=== PATIENT | female | born 1935 | race Caucasian/White ===

== ENCOUNTER → 2016-04-30 | Outpatient (CLI) | payer MEDICARE ==
[~2016-04-30] MED LIST: ALPR0.254 PO; AMIT10TA PO; AMLO5TAB2 PO; ATOR10TA PO; CALC600T4 PO; CHOL20003 PO; COLE1TAB PO; ESOM40CA PO; GLUC-12 PO; HYDR50TA6 PO; IBUP200T58 PO; KRIL500C PO; LEVO50TA5 PO; METO50TA2 PO; MULT-245 PO; POTA20TA82 PO; ZOLP10TA4 PO
--- NOTE | 2016-04-30 10:33 | RAD ---
Right lower extremity, 3 views, 04/30/2006: History: Osteoarthritis, bone length exam AP standing views of the right femur and lower leg were obtained with markers placed on the skin surface laterally to facilitate bone length measurements. There is moderate degenerative change at the right knee with dominant involvement of the medial compartment. These limited images are otherwise unremarkable.
--- NOTE | 2016-04-30 15:17 | RAD ---
Examination: MRI of the right knee were without contrast, Coburn and nephew protocol HISTORY History of chronic knee pain. COMPARISON 09/06/2015. TECHNIQUE Axial T2 fat sat images of the right knee were performed. Sagittal images FINDINGS The anterior cruciate ligament, posterior cruciate ligament appear intact. There is a attenuation and degenerative tear of the medial meniscus grossly similar to prior exam including the body and posterior horn. The extensor mechanism is intact. Moderate knee joint effusion is identified. Moderate-sized popliteal cyst is noted. Severe cartilage loss identified in the medial compartment. Note that this is not a diagnostic exam but rather intended for the purpose of medical scribe reconstruction. IMPRESSION - Severe cartilage loss identified in medial compartment. Attenuation and degenerative tear of the body and posterior horn of the medial meniscus similar to prior exam. - Moderate knee joint effusion with moderate size popliteal cyst. - Note that this is not a diagnostic exam but rather intended for the purpose of medical scribe reconstruction. Electronically signed by: Ramesh Alvarado (Apr 30, 2016 15:15:30)
== END | disposition home or self-care (01) ==
LOC: RAD 10:10
PROVIDERS: ATTEND Orthopaedic Surgery Sports Medicine
DX: M17.11 Unilateral primary osteoarthritis, right knee (principal); M25.461 Effusion, right knee; M71.21 Synovial cyst of popliteal space [Baker], right knee; S83.241A Other tear of medial meniscus, current injury, right knee, initial encounter; X58.XXXA Exposure to other specified factors, initial encounter; Y93.89 Activity, other specified; Y92.89 Other specified places as the place of occurrence of the external cause; Y99.8 Other external cause status; M25.561 Pain in right knee
CPT/HCPCS: 73721; 77073

== ENCOUNTER → 2016-05-07 | Outpatient (CLI) | payer MEDICARE ==
[~2016-05-07] MED LIST changes: +ESCI5TAB24 PO
--- NOTE | 2016-05-07 14:13 | EKG ---
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
[2016-05-07 14:40] LABS: BASO # 0.1 x10^3/uL (0.0-0.2); BASO % 1 % (0-3); EOS % 1 % (0-3); HEMATOCRIT 41.5 % (36.0-47.0); HEMOGLOBIN 13.7 g/dL (12.0-15.5); LYMPH # 2.3 x10^3/uL (1.0-4.8); LYMPH % 27 % (24-48); MEAN CORPUSCULAR HEMOGLOBIN 29 pg (25-35); MEAN CORPUSCULAR HGB CONC 33 g/dL (31-37); MEAN CORPUSCULAR VOLUME 89 fL (79-100); MONO % 9 % (0-9); NEUT % 63 % (31-73); PLATELET COUNT 300 x10^3/uL (140-400); RED BLOOD COUNT 4.66 x10^6/uL (3.50-5.40); RED CELL DISTRIBUTION WIDTH 14.5 % (11.5-14.5); WHITE BLOOD COUNT 8.7 x10^3/uL (4.0-11.0)
[2016-05-07 14:45] LABS: BILIRUBIN,URINE NEGATIVE (NEG); GLUCOSE,URINE NEGATIVE (NEG); NITRITE,URINE NEGATIVE (NEG); PH,URINE 6.5; PROTEIN,URINE NEGATIVE (NEG-TRACE); UROBILINOGEN,URINE 0.2 mg/dL (0.2 mg/dL)
[2016-05-07 14:50] LABS: ALBUMIN 3.8 g/dL (3.4-5.0); CALCIUM 9.8 mg/dL (8.5-10.1); CREATININE 0.9 mg/dL (0.6-1.0); GFR 59.9; POTASSIUM 3.5 mmol/L (3.5-5.1)
[2016-05-07 14:51] LABS: PROTHROMBIN TIME PATIENT 12.6 SEC (11.7-14.0)
[2016-05-07 14:52] LABS: BACTERIA,URINE 0 /HPF (0-FEW); RBC,URINE 0 /HPF (0-2); SQUAMOUS EPITHELIAL CELL,UR OCC /LPF; WBC,URINE 0 /HPF (0-4)
--- NOTE | 2016-05-07 15:01 | RAD ---
Indication preop. Anticipated knee surgery. PA and lateral views of the chest were obtained. Comparison is made to an examination 09/03/2015. The heart and pulmonary vessels appear normal. The lungs are clear. There is no pleural fluid or pneumothorax. There has not a significant change when compared to the previous exam. IMPRESSION: No acute finding. No significant change
== END | disposition home or self-care (01) ==
LOC: SURGPAT 12:52
PROVIDERS: ATTEND Orthopaedic Surgery Sports Medicine
DX: Z01.818 Encounter for other preprocedural examination (principal)
CPT/HCPCS: 36415; 71020; 80048; 81001; 82040; 83036; 85027; 85610; 85651; 85730; 87641; 93005

== ENCOUNTER 2016-06-15 17:58 | Inpatient (IN) | payer MEDICARE ==
[~2016-06-15] VITALS: Ht 160 cm; Wt 64.9 kg
[~2016-06-15 17:58] MED LIST changes: +MELO7.5T5 PO; +WARF-78 PO
--- NOTE | 2016-06-15 18:33 | PHYS DOC ---
Past Medical History Past Medical History: No Pertinent History Past Surgical History: No Surgical History Alcohol Use: None Drug Use: None Adult General Chief Complaint Chief Complaint: ALTERED MENTAL STATUS HPI HPI Patient is a 80 year old female who presents with altered mental status. Patient was brought to the emergency department by EMS who state that the patient contacted them. The patient states that she is confused and thinks that it may have started upon awakening this morning. Patient states currently she has a headache. Patient is able to correctly identify her name and where she is currently. Patient is having difficulty naming her primary doctor and the surgeon who recently operated on her right knee. Return evaluation, the patient was admitted on May 26, 2016 and had a right total knee arthroplasty. Patient denies any pain in her right knee at this time. Patient denies any recent illness and is currently not experiencing any chest pain or abdominal pain. Patient noted to be hypertensive. Patient states that she is on medication for hypertension but has not taken her meds today. Patient also admits to feeling anxious at this time. Review of Systems Review of Systems Constitutional: Denies fever or chills [] Eyes: Denies change in visual acuity, redness, or eye pain [] HENT: Denies nasal congestion or sore throat [] Respiratory: Denies cough or shortness of breath [] Cardiovascular: Denies chest pain or edema [] GI: Denies abdominal pain, nausea, vomiting, bloody stools or diarrhea [] : Denies dysuria or hematuria [] Musculoskeletal: Denies back pain or joint pain [] Integument: Denies rash or skin lesions [] Neurologic: Headache, confusion, denies focal weakness or sensory changes [] Current Medications Current Medications Current Medications Medications (Trade) Dose Ordered Sig/Dalton Start Time Stop Time Status Last Admin Dose Admin Acetaminophen (Tylenol) 650 mg PRN Q4HRS PRN 06/15/16 19:30 06/16/16 19:29 Labetalol HCl (Normodyne) 10 mg PRN Q2HR PRN 06/15/16 19:30 Lorazepam (Ativan) 1 mg 1X ONCE 06/15/16 18:45 06/15/16 18:46 DC 06/15/16 18:33 1 MG Ondansetron HCl (Zofran) 4 mg PRN Q8HRS PRN 06/15/16 19:30 06/16/16 19:29 Sodium Chloride 1,000 ml @ 100 mls/hr 1X ONCE 06/15/16 18:45 06/16/16 04:44 06/15/16 18:34 100 MLS/HR Allergies Allergies Allergies Coded Allergies Type Severity Reaction Last Updated Verified latex Allergy Intermediate Rash 05/26/16 Yes Physical Exam Physical Exam Constitutional: Alert, afebrile, appears anxious. [] HENT: Normocephalic, atraumatic, bilateral external ears normal, oropharynx moist, no oral exudates, nose normal. [] Eyes: PERRLA, EOMI, conjunctiva normal, no discharge. [] Neck: Normal range of motion, no tenderness, supple, no stridor. [] Cardiovascular:Heart rate regular rhythm, no murmur [] Lungs & Thorax: Bilateral breath sounds clear to auscultation [] Abdomen: Bowel sounds normal, soft, no tenderness, no masses, no pulsatile masses. [] Skin: Warm, dry, no erythema, no rash. [] Back: No tenderness, no CVA tenderness. [] Extremities: Right TKA incision with soiled Steri-Strips in place, nontender to palpation, no warmth or erythema present, no cyanosis, no clubbing, ROM intact, no edema. [] Neurologic: Alert, disoriented to events, normal motor function, normal sensory function, no focal deficits noted. [] Current Patient Data Vital Signs Vital Signs Date Time Temp Pulse Resp B/P (MAP) Pulse Ox O2 Delivery O2 Flow Rate FiO2 06/15/16 18:01 84 24 212/90 (130) 98 Room Air Lab Values Laboratory Tests Test 06/15/16 18:00 06/15/16 18:24 White Blood Count 9.6 x10^3/uL (4.0-11.0) Red Blood Count 4.35 x10^6/uL (3.50-5.40) Hemoglobin 12.9 g/dL (12.0-15.5) Hematocrit 37.0 % (36.0-47.0) Mean Corpuscular Volume 85 fL (79-100) Mean Corpuscular Hemoglobin 30 pg (25-35) Mean Corpuscular Hemoglobin Concent 35 g/dL (31-37) Red Cell Distribution Width 13.6 % (11.5-14.5) Platelet Count 464 x10^3/uL (140-400) H Neutrophils (%) (Auto) 67 % (31-73) Lymphocytes (%) (Auto) 22 % (24-48) L Monocytes (%) (Auto) 11 % (0-9) H Eosinophils (%) (Auto) 0 % (0-3) Basophils (%) (Auto) 1 % (0-3) Neutrophils # (Auto) 6.4 x10^3uL (1.8-7.7) Lymphocytes # (Auto) 2.1 x10^3/uL (1.0-4.8) Monocytes # (Auto) 1.0 x10^3/uL (0.0-1.1) Eosinophils # (Auto) 0.0 x10^3/uL (0.0-0.7) Basophils # (Auto) 0.1 x10^3/uL (0.0-0.2) Sodium Level 124 mmol/L (136-145) L Potassium Level 3.1 mmol/L (3.5-5.1) L Chloride Level 87 mmol/L (98-107) L Carbon Dioxide Level 25 mmol/L (21-32) Anion Gap 12 (6-14) Blood Urea Nitrogen 10 mg/dL (7-20) Creatinine 0.7 mg/dL (0.6-1.0) Estimated GFR (Cockcroft-Gault) 80.1 BUN/Creatinine Ratio 14 (6-20) Glucose Level 123 mg/dL (70-99) H Lactic Acid Level 1.9 mmol/L (0.4-2.0) Calcium Level 9.9 mg/dL (8.5-10.1) Magnesium Level 1.5 mg/dL (1.8-2.4) L Total Bilirubin 0.6 mg/dL (0.2-1.0) Aspartate Amino Transferase (AST) 26 U/L (15-37) Alanine Aminotransferase (ALT) 24 U/L (14-59) Alkaline Phosphatase 89 U/L (46-116) Total Protein 7.8 g/dL (6.4-8.2) Albumin 3.7 g/dL (3.4-5.0) Albumin/Globulin Ratio 0.9 (1.0-1.7) L Urine Collection Type Unknown Urine Color Yellow Urine Clarity Clear Urine pH 8.0 Urine Specific [place] 1.010 Urine Protein Negative mg/dL (NEG-TRACE) Urine Glucose (UA) Negative mg/dL (NEG) Urine Ketones (Stick) Negative mg/dL (NEG) Urine Blood Negative (NEG) Urine Nitrite Negative (NEG) Urine Bilirubin Negative (NEG) Urine Urobilinogen Dipstick 0.2 mg/dL (0.2 mg/dL) Urine Leukocyte Esterase Negative (NEG) Urine RBC 0 /HPF (0-2) Urine WBC Rare /HPF (0-4) Urine Squamous Epithelial Cells Occ /LPF Urine Bacteria 0 /HPF (0-FEW) Urine Opiates Screen Pos (NEG) Urine Methadone Screen Neg (NEG) Urine Barbiturates Neg (NEG) Urine Phencyclidine Screen Neg (NEG) Urine Amphetamine/Methamphetamine Neg (NEG) Urine Benzodiazepines Screen Neg (NEG) Urine Cocaine Screen Neg (NEG) Urine Cannabinoids Screen Neg (NEG) Urine Ethyl Alcohol Neg (NEG) Laboratory Tests 06/15/16 18:00 Laboratory Tests 06/15/16 18:00 EKG EKG Interpreted by me: Heart rate 82, sinus rhythm, normal intervals, normal axis, no acute ST/T-wave abnormalities present [] Radiology/Procedures Radiology/Procedures One view AP chest x-ray interpreted by me: No infiltrate, no effusions, normal cardiac silhouette [] Course & Med Decision Making Course & Med Decision Making Pertinent Labs and Imaging studies reviewed. (See chart for details) Patient found to have a significantly decreased sodium level at 124. This is believed to be the cause of the patient's alteration in mental status. Patient will require admission to the hospital for further treatment. I spoke with Dr. Ruiz who accepted care patient in hospital. A consult was placed to Dr. Markham of nephrology to follow patient in hospital. Dragon Disclaimer Dragon Disclaimer This electronic medical record was generated, in whole or in part, using a voice recognition dictation system. Departure Departure Impression: Primary Impression: Metabolic encephalopathy Additional Impressions: Hyponatremia Hypertension Disposition: ADMITTED INPATIENT Admitting Physician: Olya Ruiz Condition: GUARDED Referrals: VIC SHARMA (PCP) Problem Qualifiers Additional Impressions: Hypertension Hypertension type: essential hypertension Qualified Codes: I10 - Essential ( primary) hypertension ADI ORTIZ MD June 15, 2016 18:33
[2016-06-15 18:39] LABS: BILIRUBIN,URINE NEGATIVE (NEG); GLUCOSE,URINE NEGATIVE (NEG); NITRITE,URINE NEGATIVE (NEG); PROTEIN,URINE NEGATIVE (NEG-TRACE); UROBILINOGEN,URINE 0.2 mg/dL (0.2 mg/dL)
[2016-06-15 18:40] LABS: BASO # 0.1 x10^3/uL (0.0-0.2); BASO % 1 % (0-3); EOS % 0 % (0-3); HEMOGLOBIN 12.9 g/dL (12.0-15.5); LYMPH # 2.1 x10^3/uL (1.0-4.8); LYMPH % 22 % (24-48); MEAN CORPUSCULAR HEMOGLOBIN 30 pg (25-35); MEAN CORPUSCULAR HGB CONC 35 g/dL (31-37); MEAN CORPUSCULAR VOLUME 85 fL (79-100); MONO % 11 % (0-9); NEUT % 67 % (31-73); PLATELET COUNT 464 x10^3/uL (140-400); RED BLOOD COUNT 4.35 x10^6/uL (3.50-5.40); RED CELL DISTRIBUTION WIDTH 13.6 % (11.5-14.5); WHITE BLOOD COUNT 9.6 x10^3/uL (4.0-11.0)
[2016-06-15 18:44] LABS: BACTERIA,URINE 0 /HPF (0-FEW); RBC,URINE 0 /HPF (0-2); SQUAMOUS EPITHELIAL CELL,UR OCC /LPF; WBC,URINE RARE /HPF (0-4)
[2016-06-15] MEDS ORDERED: IV NORMAL SALINE 1000ML BAG 1,000 ML IV ONE (18:45)
[2016-06-15 18:46] LABS: BARBITURATES NEG (NEG); BENZODIAZEPINES NEG (NEG); CANNABINOIDS NEG (NEG); COCAINE NEG (NEG); METHADONE NEG (NEG); OPIATES POS (NEG); PHENCYCLIDINE NEG (NEG)
[2016-06-15 18:50] LABS: CALCIUM 9.9 mg/dL (8.5-10.1); CREATININE 0.7 mg/dL (0.6-1.0); GFR 80.1; POTASSIUM 3.1 mmol/L (3.5-5.1)
[2016-06-15 19:06] LABS: ALBUMIN 3.7 g/dL (3.4-5.0); ALBUMIN/GLOBULIN RATIO 0.9 (1.0-1.7); MAGNESIUM 1.5 mg/dL (1.8-2.4); TOTAL BILIRUBIN 0.6 mg/dL (0.2-1.0); TOTAL PROTEIN 7.8 g/dL (6.4-8.2)
[2016-06-15] MEDS ORDERED: LABETALOL 20 MG/4 ML DISP.SYRIN. IVP PRN (19:30)
[2016-06-15] MEDS ORDERED: ONDANSETRON PF 4 MG/2 ML VIAL. IV PRN (19:30)
[2016-06-15] MEDS ORDERED: POTASSIUM CHLORIDE 20 MEQ TABLET.ER. PO ONE (20:30)
[2016-06-15 20:47] VITALS: BP 164/68
--- NOTE | 2016-06-15 20:53 | ACF ---
Admission Forms Criteria HYPONATREMIA; HYPERNATREMIA; HYPOKALEMIA; HYPERKALEMIA; HYPOCALCEMIA; HYPERCALCEMIA Clinical Indications for Inpatient Care (Place 'X' for any and all applicable criteria): Ongoing inpatient care may be indicated for ANY ONE of the following [G](1)(2)(3 )(5): [X ]I. Hyponatremia with ANY ONE of the following: [X]a) Sodium less than 130 mEq/L (mmol/L) (new) (6)(22) [ ]b) Sodium less than 135 mEq/L (mmol/L) with ANY ONE of the following: [ ]i) Severe medical etiology requiring inpatient management (eg, heart failure, hypovolemia) [ ]ii) Altered mental status [ ]iii) Seizures [ ]II. Hypernatremia with ANY ONE of the following: [ ]a) Sodium greater than 155 mEq/L (mmol/L) [ ]b) Sodium greater than 150 mEq/L (mmol/L) with ANY ONE of the following: [ ] i) Altered mental status [ ]ii) Seizures [ ]iii) Severe medical etiology (eg, hypovolemia, diabetes insipidus) [ ]iv) Severe weakness [ ]v) Severe medical etiology (eg, hemolysis, infection, drug overdose) [ ]III. Hypokalemia with ANY ONE of the following: [ ]a) Potassium less than 2.5 mEq/L (mmol/L) despite outpatient and emergency treatment [ ]b) Potassium less than 3.0 mEq/L (mmol/L) with ANY ONE of the following: [ ]i) Weakness [ ]ii) Cardiac abnormality (eg, arrhythmia, conduction disturbance) [ ]iii) Cardiac ischemia [ ]iv) Ileus [ ]v) Ongoing medical cause requiring inpatient management. ( e.g., acute renal wasting, SIADH) [ ]vi) Other severe symptoms [ ] IV. Hyperkalemia with ANY ONE of the following: [ ]a) Potassium greater than 6.5 mEq/L (mmol/L) [ ]b) Potassium greater than 5 mEq/L (mmol/L) with ANY ONE of the following: [ ]i) Severe ECG findings [H] [ ]ii) Acute worsening of renal failure (creatinine greater than 2.5 mg/dL (221 micromoles/L) or significant elevation for age and size) [ ] V. Hypocalcemia with ANY ONE of the following: [ ]a) Calcium less than 7 mg/dL (1.75 mmol/L) despite outpatient and emergency treatment(19) [ ]b) Calcium less than 8 mg/dL (2 mmol/L) with significant symptoms or findings; examples include: [ ]i) Cardiac abnormality (eg, arrhythmia or conduction disturbance) [ ]ii) Altered mental status [ ]iii) Seizures [ ]iv) Breathing difficulty [ ]v) Muscle spasms [ ]. Hypercalcemia with ANY ONE of the following: [ ]a) Calcium greater than 14 mg/dL (3.5 mmol/L) [ ]b) Calcium greater than 12 mg/dL (3 mmol/L) with ANY ONE of the following: [ ]i) Significant dehydration or hypovolemia as indicated by ANY ONE of the following(2): [ ]1. Clinically significant dehydration as indicated by ANY ONE of the following: [ ]A. Acute loss of weight from baseline (5% of body weight in adults, 9% in pediatric patients) [ ]B. Hemodynamic instability [ ]C. Acute renal failure [ ]D. Serum sodium greater than 150 mEq/L (mmol/L) [ ]2) Dehydration that is persistent indicated by ALL of the following: [ ]A. Oral rehydration therapy not tolerated or insufficient to adequately correct dehydration [ ]B. Appropriate intravenous treatment (eg, fluids ) does not readily correct dehydration ie, after 12 to 24 hours of treatment) [ ]ii) Significant symptoms or findings; examples include: [ ]1) Altered mental status [ ]2) Cardiac abnormality (eg, arrhythmia, conduction disturbance) [ ]3) Cardiac abnormality (eg, arrhythmia, conduction disturbance) The original [facility] content created by [employer] has been revised. The portions of the content which have been revised are identified through the use of italic text or in bold, and [facility] has neither reviewed nor approved the modified material. All other unmodified content is copyright [facility] [employer] Please see references footnoted in the original [facility] [employer] edition 2016 Admission Criteria Met?: Yes TANNER ACUÑA June 15, 2016 20:53
[2016-06-15] MEDS: ACETAMINOPHEN 325 MG TABLET. PO PRN (22:16)
[2016-06-15] MEDS: IV NORMAL SALINE 1000ML BAG 1,000 ML IV SCH (22:19)
[2016-06-15] MEDS: ALPRAZolam 0.25 MG TABLET PO PRN (22:31)
[2016-06-15] MEDS: ZOLPIDEM 5 MG TABLET. PO PRN (22:31)
[2016-06-15 23:03] VITALS: BP 151/64
[2016-06-16 03:06] VITALS: BP 155/62
[2016-06-16] MEDS: ACETAMINOPHEN 325 MG TABLET. PO PRN ×2 (04:41→08:23)
[2016-06-16] MEDS: ALPRAZolam 0.25 MG TABLET PO PRN ×2 (04:41→21:51)
[2016-06-16 06:11] LABS: CALCIUM 9.2 mg/dL (8.5-10.1); CREATININE 0.7 mg/dL (0.6-1.0); GFR 80.1; POTASSIUM 3.8 mmol/L (3.5-5.1)
[2016-06-16] MEDS: LEVOTHYROXINE 50 MCG TABLET PO SCH (06:29)
--- NOTE | 2016-06-16 06:37 | EKG ---
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
[2016-06-16 06:47] LABS: INR 1.4 (0.8-1.1); PROTHROMBIN TIME PATIENT 16.7 SEC (11.7-14.0)
--- NOTE | 2016-06-16 07:06 | RAD ---
Indication: Shortness of breath. Time of exam 1855 hours. Correlation is made with prior study from 05/07/2016. The heart size is normal. The lungs are clear. No infiltrate or failure is seen. No effusion or pneumothorax is detected. Impression: No acute cardiac bony process is detected.
[2016-06-16 07:10] LABS: BASO # 0.1 x10^3/uL (0.0-0.2); BASO % 1 % (0-3); EOS % 0 % (0-3); HEMATOCRIT 33.6 % (36.0-47.0); HEMOGLOBIN 11.4 g/dL (12.0-15.5); LYMPH # 2.3 x10^3/uL (1.0-4.8); LYMPH % 26 % (24-48); MEAN CORPUSCULAR HEMOGLOBIN 29 pg (25-35); MEAN CORPUSCULAR HGB CONC 34 g/dL (31-37); MEAN CORPUSCULAR VOLUME 87 fL (79-100); MONO % 13 % (0-9); NEUT % 59 % (31-73); PLATELET COUNT 409 x10^3/uL (140-400); RED BLOOD COUNT 3.86 x10^6/uL (3.50-5.40); RED CELL DISTRIBUTION WIDTH 13.8 % (11.5-14.5); WHITE BLOOD COUNT 8.6 x10^3/uL (4.0-11.0)
[2016-06-16 07:47] VITALS: BP 140/61
[2016-06-16] MEDS: PANTOPRAZOLE 40 MG TABLET.DR. PO SCH (08:23)
[2016-06-16] MEDS: CHOLECALCIFEROL (VITAMIN D3) 1,000 UNIT TABLET PO SCH (08:27)
[2016-06-16] MEDS: POTASSIUM CHLORIDE 20 MEQ TABLET.ER. PO SCH (08:27)
[2016-06-16] MEDS: ESCITALOPRAM 5 MG TABLET. PO SCH (08:27)
[2016-06-16] MEDS: MULTIVITAMIN with MINERAL TABLET. PO SCH (08:28)
[2016-06-16] MEDS: IV NORMAL SALINE 1000ML BAG 1,000 ML IV SCH ×2 (08:48→16:00)
[2016-06-16 10:47] VITALS: BP 145/50
--- NOTE | 2016-06-16 11:12 | PDOC ---
PROGRESS NOTES Chief Complaint Chief Complaint 1. Hyponatremia 2. Altered mental status 3. Metabolic encephalopathy 4. HTN 5. Recent R knee replacement History of Present Illness History of Present Illness Patient is stable and in no distress this morning. Patient has regained full mentation. Compared from yesterday, as per patient, she wasn't able to remember her phone number at that time. Patient educated on possible causes of hyponatremia. Patient mentioned her recent R knee replacement. Upon observation of R knee, ortho will be consulted due to erythema. Vitals Vitals Vital Signs Date Time Temp Pulse Resp B/P (MAP) Pulse Ox O2 Delivery O2 Flow Rate FiO2 06/16/16 10:47 97.7 79 16 145/50 (81) 95 Room Air 97.7 Physical Exam General: Alert, Cooperative, No acute distress Heart: Regular rate, Normal S1, Normal S2 Lungs: Clear Abdomen: Normal bowel sounds, No hepatosplenomegaly Extremities: No clubbing, No cyanosis, No tenderness/swelling Skin: No rashes, No breakdown Labs LABS Laboratory Tests Test 06/15/16 18:00 06/15/16 18:24 06/16/16 05:05 White Blood Count 9.6 x10^3/uL (4.0-11.0) 8.6 x10^3/uL (4.0-11.0) Red Blood Count 4.35 x10^6/uL (3.50-5.40) 3.86 x10^6/uL (3.50-5.40) Hemoglobin 12.9 g/dL (12.0-15.5) 11.4 g/dL (12.0-15.5) Hematocrit 37.0 % (36.0-47.0) 33.6 % (36.0-47.0) Mean Corpuscular Volume 85 fL (79-100) 87 fL (79-100) Mean Corpuscular Hemoglobin 30 pg (25-35) 29 pg (25-35) Mean Corpuscular Hemoglobin Concent 35 g/dL (31-37) 34 g/dL (31-37) Red Cell Distribution Width 13.6 % (11.5-14.5) 13.8 % (11.5-14.5) Platelet Count 464 x10^3/uL (140-400) 409 x10^3/uL (140-400) Neutrophils (%) (Auto) 67 % (31-73) 59 % (31-73) Lymphocytes (%) (Auto) 22 % (24-48) 26 % (24-48) Monocytes (%) (Auto) 11 % (0-9) 13 % (0-9) Eosinophils (%) (Auto) 0 % (0-3) 0 % (0-3) Basophils (%) (Auto) 1 % (0-3) 1 % (0-3) Neutrophils # (Auto) 6.4 x10^3uL (1.8-7.7) 5.1 x10^3uL (1.8-7.7) Lymphocytes # (Auto) 2.1 x10^3/uL (1.0-4.8) 2.3 x10^3/uL (1.0-4.8) Monocytes # (Auto) 1.0 x10^3/uL (0.0-1.1) 1.1 x10^3/uL (0.0-1.1) Eosinophils # (Auto) 0.0 x10^3/uL (0.0-0.7) 0.0 x10^3/uL (0.0-0.7) Basophils # (Auto) 0.1 x10^3/uL (0.0-0.2) 0.1 x10^3/uL (0.0-0.2) Sodium Level 124 mmol/L (136-145) 126 mmol/L (136-145) Potassium Level 3.1 mmol/L (3.5-5.1) 3.8 mmol/L (3.5-5.1) Chloride Level 87 mmol/L (98-107) 92 mmol/L (98-107) Carbon Dioxide Level 25 mmol/L (21-32) 23 mmol/L (21-32) Anion Gap 12 (6-14) 11 (6-14) Blood Urea Nitrogen 10 mg/dL (7-20) 7 mg/dL (7-20) Creatinine 0.7 mg/dL (0.6-1.0) 0.7 mg/dL (0.6-1.0) Estimated GFR (Cockcroft-Gault) 80.1 80.1 BUN/Creatinine Ratio 14 (6-20) Glucose Level 123 mg/dL (70-99) 104 mg/dL (70-99) Lactic Acid Level 1.9 mmol/L (0.4-2.0) Calcium Level 9.9 mg/dL (8.5-10.1) 9.2 mg/dL (8.5-10.1) Magnesium Level 1.5 mg/dL (1.8-2.4) Total Bilirubin 0.6 mg/dL (0.2-1.0) Aspartate Amino Transf (AST/SGOT) 26 U/L (15-37) Alanine Aminotransferase (ALT/SGPT) 24 U/L (14-59) Alkaline Phosphatase 89 U/L (46-116) Total Protein 7.8 g/dL (6.4-8.2) Albumin 3.7 g/dL (3.4-5.0) Albumin/Globulin Ratio 0.9 (1.0-1.7) Urine Collection Type Unknown Urine Color Yellow Urine Clarity Clear Urine pH 8.0 Urine Specific [place] 1.010 Urine Protein Negative mg/dL (NEG-TRACE) Urine Glucose (UA) Negative mg/dL (NEG) Urine Ketones (Stick) Negative mg/dL (NEG) Urine Blood Negative (NEG) Urine Nitrite Negative (NEG) Urine Bilirubin Negative (NEG) Urine Urobilinogen Dipstick 0.2 mg/dL (0.2 mg/dL) Urine Leukocyte Esterase Negative (NEG) Urine RBC 0 /HPF (0-2) Urine WBC Rare /HPF (0-4) Urine Squamous Epithelial Cells Occ /LPF Urine Bacteria 0 /HPF (0-FEW) Urine Opiates Screen Pos (NEG) Urine Methadone Screen Neg (NEG) Urine Barbiturates Neg (NEG) Urine Phencyclidine Screen Neg (NEG) Urine Amphetamine/Methamphetamine Neg (NEG) Urine Benzodiazepines Screen Neg (NEG) Urine Cocaine Screen Neg (NEG) Urine Cannabinoids Screen Neg (NEG) Urine Ethyl Alcohol Neg (NEG) Prothrombin Time 16.7 SEC (11.7-14.0) Prothromb Time International Ratio 1.4 (0.8-1.1) Review of Systems Review of Systems No JURADO/blurriness of vision. No diarrhea/constipation. No fever/chills. Assessment and Plan Assessmemt and Plan Problems Medical Problems: (1) Hypertension Status: Acute (2) Hyponatremia Status: Acute (3) Metabolic encephalopathy Status: Acute 4. Altered mental status 5. Recent R knee replacement Plan: Continue current medications and adjust accordingly as needed. Continue normal saline for hyponatremia. Continue daily blood draws to monitor hyponatremia. Consider PT/OT. Consult ortho for recent R knee replacement due to erythema. Continue wound care to R knee. Possible D/C tomorrow if all specialities agree. Problems: Comment Review of Relevant I have reviewed the following items oskar (where applicable) has been applied. Labs Laboratory Tests Test 06/15/16 18:00 06/15/16 18:24 06/16/16 05:05 White Blood Count 9.6 x10^3/uL (4.0-11.0) 8.6 x10^3/uL (4.0-11.0) Red Blood Count 4.35 x10^6/uL (3.50-5.40) 3.86 x10^6/uL (3.50-5.40) Hemoglobin 12.9 g/dL (12.0-15.5) 11.4 g/dL (12.0-15.5) Hematocrit 37.0 % (36.0-47.0) 33.6 % (36.0-47.0) Mean Corpuscular Volume 85 fL (79-100) 87 fL (79-100) Mean Corpuscular Hemoglobin 30 pg (25-35) 29 pg (25-35) Mean Corpuscular Hemoglobin Concent 35 g/dL (31-37) 34 g/dL (31-37) Red Cell Distribution Width 13.6 % (11.5-14.5) 13.8 % (11.5-14.5) Platelet Count 464 x10^3/uL (140-400) 409 x10^3/uL (140-400) Neutrophils (%) (Auto) 67 % (31-73) 59 % (31-73) Lymphocytes (%) (Auto) 22 % (24-48) 26 % (24-48) Monocytes (%) (Auto) 11 % (0-9) 13 % (0-9) Eosinophils (%) (Auto) 0 % (0-3) 0 % (0-3) Basophils (%) (Auto) 1 % (0-3) 1 % (0-3) Neutrophils # (Auto) 6.4 x10^3uL (1.8-7.7) 5.1 x10^3uL (1.8-7.7) Lymphocytes # (Auto) 2.1 x10^3/uL (1.0-4.8) 2.3 x10^3/uL (1.0-4.8) Monocytes # (Auto) 1.0 x10^3/uL (0.0-1.1) 1.1 x10^3/uL (0.0-1.1) Eosinophils # (Auto) 0.0 x10^3/uL (0.0-0.7) 0.0 x10^3/uL (0.0-0.7) Basophils # (Auto) 0.1 x10^3/uL (0.0-0.2) 0.1 x10^3/uL (0.0-0.2) Sodium Level 124 mmol/L (136-145) 126 mmol/L (136-145) Potassium Level 3.1 mmol/L (3.5-5.1) 3.8 mmol/L (3.5-5.1) Chloride Level 87 mmol/L (98-107) 92 mmol/L (98-107) Carbon Dioxide Level 25 mmol/L (21-32) 23 mmol/L (21-32) Anion Gap 12 (6-14) 11 (6-14) Blood Urea Nitrogen 10 mg/dL (7-20) 7 mg/dL (7-20) Creatinine 0.7 mg/dL (0.6-1.0) 0.7 mg/dL (0.6-1.0) Estimated GFR (Cockcroft-Gault) 80.1 80.1 BUN/Creatinine Ratio 14 (6-20) Glucose Level 123 mg/dL (70-99) 104 mg/dL (70-99) Lactic Acid Level 1.9 mmol/L (0.4-2.0) Calcium Level 9.9 mg/dL (8.5-10.1) 9.2 mg/dL (8.5-10.1) Magnesium Level 1.5 mg/dL (1.8-2.4) Total Bilirubin 0.6 mg/dL (0.2-1.0) Aspartate Amino Transf (AST/SGOT) 26 U/L (15-37) Alanine Aminotransferase (ALT/SGPT) 24 U/L (14-59) Alkaline Phosphatase 89 U/L (46-116) Total Protein 7.8 g/dL (6.4-8.2) Albumin 3.7 g/dL (3.4-5.0) Albumin/Globulin Ratio 0.9 (1.0-1.7) Urine Collection Type Unknown Urine Color Yellow Urine Clarity Clear Urine pH 8.0 Urine Specific [place] 1.010 Urine Protein Negative mg/dL (NEG-TRACE) Urine Glucose (UA) Negative mg/dL (NEG) Urine Ketones (Stick) Negative mg/dL (NEG) Urine Blood Negative (NEG) Urine Nitrite Negative (NEG) Urine Bilirubin Negative (NEG) Urine Urobilinogen Dipstick 0.2 mg/dL (0.2 mg/dL) Urine Leukocyte Esterase Negative (NEG) Urine RBC 0 /HPF (0-2) Urine WBC Rare /HPF (0-4) Urine Squamous Epithelial Cells Occ /LPF Urine Bacteria 0 /HPF (0-FEW) Urine Opiates Screen Pos (NEG) Urine Methadone Screen Neg (NEG) Urine Barbiturates Neg (NEG) Urine Phencyclidine Screen Neg (NEG) Urine Amphetamine/Methamphetamine Neg (NEG) Urine Benzodiazepines Screen Neg (NEG) Urine Cocaine Screen Neg (NEG) Urine Cannabinoids Screen Neg (NEG) Urine Ethyl Alcohol Neg (NEG) Prothrombin Time 16.7 SEC (11.7-14.0) Prothromb Time International Ratio 1.4 (0.8-1.1) Laboratory Tests Test 06/15/16 18:00 06/15/16 18:24 06/16/16 05:05 White Blood Count 9.6 x10^3/uL (4.0-11.0) 8.6 x10^3/uL (4.0-11.0) Red Blood Count 4.35 x10^6/uL (3.50-5.40) 3.86 x10^6/uL (3.50-5.40) Hemoglobin 12.9 g/dL (12.0-15.5) 11.4 g/dL (12.0-15.5) Hematocrit 37.0 % (36.0-47.0) 33.6 % (36.0-47.0) Mean Corpuscular Volume 85 fL (79-100) 87 fL (79-100) Mean Corpuscular Hemoglobin 30 pg (25-35) 29 pg (25-35) Mean Corpuscular Hemoglobin Concent 35 g/dL (31-37) 34 g/dL (31-37) Red Cell Distribution Width 13.6 % (11.5-14.5) 13.8 % (11.5-14.5) Platelet Count 464 x10^3/uL (140-400) 409 x10^3/uL (140-400) Neutrophils (%) (Auto) 67 % (31-73) 59 % (31-73) Lymphocytes (%) (Auto) 22 % (24-48) 26 % (24-48) Monocytes (%) (Auto) 11 % (0-9) 13 % (0-9) Eosinophils (%) (Auto) 0 % (0-3) 0 % (0-3) Basophils (%) (Auto) 1 % (0-3) 1 % (0-3) Neutrophils # (Auto) 6.4 x10^3uL (1.8-7.7) 5.1 x10^3uL (1.8-7.7) Lymphocytes # (Auto) 2.1 x10^3/uL (1.0-4.8) 2.3 x10^3/uL (1.0-4.8) Monocytes # (Auto) 1.0 x10^3/uL (0.0-1.1) 1.1 x10^3/uL (0.0-1.1) Eosinophils # (Auto) 0.0 x10^3/uL (0.0-0.7) 0.0 x10^3/uL (0.0-0.7) Basophils # (Auto) 0.1 x10^3/uL (0.0-0.2) 0.1 x10^3/uL (0.0-0.2) Sodium Level 124 mmol/L (136-145) 126 mmol/L (136-145) Potassium Level 3.1 mmol/L (3.5-5.1) 3.8 mmol/L (3.5-5.1) Chloride Level 87 mmol/L (98-107) 92 mmol/L (98-107) Carbon Dioxide Level 25 mmol/L (21-32) 23 mmol/L (21-32) Anion Gap 12 (6-14) 11 (6-14) Blood Urea Nitrogen 10 mg/dL (7-20) 7 mg/dL (7-20) Creatinine 0.7 mg/dL (0.6-1.0) 0.7 mg/dL (0.6-1.0) Estimated GFR (Cockcroft-Gault) 80.1 80.1 BUN/Creatinine Ratio 14 (6-20) Glucose Level 123 mg/dL (70-99) 104 mg/dL (70-99) Lactic Acid Level 1.9 mmol/L (0.4-2.0) Calcium Level 9.9 mg/dL (8.5-10.1) 9.2 mg/dL (8.5-10.1) Magnesium Level 1.5 mg/dL (1.8-2.4) Total Bilirubin 0.6 mg/dL (0.2-1.0) Aspartate Amino Transf (AST/SGOT) 26 U/L (15-37) Alanine Aminotransferase (ALT/SGPT) 24 U/L (14-59) Alkaline Phosphatase 89 U/L (46-116) Total Protein 7.8 g/dL (6.4-8.2) Albumin 3.7 g/dL (3.4-5.0) Albumin/Globulin Ratio 0.9 (1.0-1.7) Urine Collection Type Unknown Urine Color Yellow Urine Clarity Clear Urine pH 8.0 Urine Specific [place] 1.010 Urine Protein Negative mg/dL (NEG-TRACE) Urine Glucose (UA) Negative mg/dL (NEG) Urine Ketones (Stick) Negative mg/dL (NEG) Urine Blood Negative (NEG) Urine Nitrite Negative (NEG) Urine Bilirubin Negative (NEG) Urine Urobilinogen Dipstick 0.2 mg/dL (0.2 mg/dL) Urine Leukocyte Esterase Negative (NEG) Urine RBC 0 /HPF (0-2) Urine WBC Rare /HPF (0-4) Urine Squamous Epithelial Cells Occ /LPF Urine Bacteria 0 /HPF (0-FEW) Urine Opiates Screen Pos (NEG) Urine Methadone Screen Neg (NEG) Urine Barbiturates Neg (NEG) Urine Phencyclidine Screen Neg (NEG) Urine Amphetamine/Methamphetamine Neg (NEG) Urine Benzodiazepines Screen Neg (NEG) Urine Cocaine Screen Neg (NEG) Urine Cannabinoids Screen Neg (NEG) Urine Ethyl Alcohol Neg (NEG) Prothrombin Time 16.7 SEC (11.7-14.0) Prothromb Time International Ratio 1.4 (0.8-1.1) Medications Current Medications Lorazepam (Ativan) 1 mg 1X ONCE IV Last administered on 06/15/16 18:33; Start 06/15/16 at 18:45; Stop 06/15/16 at 18:46; Status DC Sodium Chloride 1,000 ml @ 100 mls/hr 1X ONCE IV Last administered on 18:34; Start 06/15/16 at 18:45; Stop 06/16/16 at 04:44; Status DC Ondansetron HCl (Zofran) 4 mg PRN Q8HRS PRN IV NAUSEA/VOMITING; Start 06/15/16 at 19:30; Stop 06/16/16 at 19:29 Sodium Chloride 1,000 ml @ 100 mls/hr Q10H IV Last administered on 06/16/16 08 :48; Start 06/15/16 at 20:00; Stop 06/16/16 at 19:59 Acetaminophen (Tylenol) 650 mg PRN Q4HRS PRN PO FEVER Last administered on 08:23; Start 06/15/16 at 19:30; Stop 06/16/16 at 19:29 Labetalol HCl (Normodyne) 10 mg PRN Q2HR PRN IVP HYPERTENSION, SEE COMMENTS; Start 06/15/16 at 19:30 Potassium Chloride (Klor-Con) 40 meq 1X ONCE PO Last administered on 06/15/16 22:17; Start 06/15/16 at 20:30; Stop 06/15/16 at 20:31; Status DC Alprazolam (Xanax) 0.25 mg PRN Q6HRS PRN PO ANXIETY / AGITATION Last administered on 06/16/16 04:41; Start 06/15/16 at 22:00 Amlodipine Besylate (Norvasc) 5 mg DAILYWSUP PO ; Start 06/16/16 at 17:00 Atorvastatin Calcium (Lipitor) 10 mg HS PO ; Start 06/16/16 at 21:00 Escitalopram Oxalate (Lexapro) 5 mg DAILY PO Last administered on 06/16/16 08: 27; Start 06/16/16 at 09:00 Levothyroxine Sodium (Synthroid) 50 mcg DAILY07 PO Last administered on 06:29; Start 06/16/16 at 07:00 Metoprolol Tartrate (Lopressor) 50 mg DAILYWSUP PO ; Start 06/16/16 at 17:00 Warfarin Sodium (Coumadin) 5 mg DAILY16 PO ; Start 06/16/16 at 16:00 Vitamin D (Vitamin D3) 2,000 unit DAILY PO Last administered on 06/16/16 08:27 ; Start 06/16/16 at 09:00 Pantoprazole Sodium (Protonix) 40 mg DAILYAC PO Last administered on 06/16/16 08:23; Start 06/16/16 at 07:30 Multivitamins (Thera M Plus) 1 tab DAILY PO Last administered on 06/16/16 08:28 ; Start 06/16/16 at 09:00 Potassium Chloride (Klor-Con) 20 meq DAILY PO Last administered on 06/16/16 08: 27; Start 06/16/16 at 09:00 Zolpidem Tartrate (Ambien) 5 mg PRN QHS PRN PO INSOMNIA & MRX1 PRN Last administered on 06/15/16 22:31; Start 06/15/16 at 22:00 Warfarin Sodium (Coumadin Per Physician) 1 each PRN DAILY PRN MC SEE COMMENTS; Start 06/16/16 at 16:00 Active Scripts Active Reported Coumadin (Warfarin Sodium) 5 Mg Tablet 1 Tab PO 1X last dose was at 1300 next dos when prescribed by your house physician Lexapro (Escitalopram Oxalate) 5 Mg Tablet 5 Mg PO DAILY last dose was this am next dose tomorrow am -thursday Multi Vitamin Daily (Multivitamin) 1 Each Tablet 1 Each PO DAILY last dose this am next dose tomorrow am Vitamin D3 (Cholecalciferol (Vitamin D3)) 2,000 Unit Capsule 2,000 Unit PO DAILY Meds not given this hospital admission. May resume home medications as approved by Physician. Zolpidem Tartrate 10 Mg Tablet 10 Mg PO PRN QHS PRN last dose was last night next dose tonight Lipitor (Atorvastatin Calcium) 10 Mg Tablet 10 Mg PO HS last dose last night -thursday next dose is tonight at hs Amlodipine Besylate 5 Mg Tablet 5 Mg PO DAILYWSUP last dose was thursday 1700 next dose today at 1700 Potassium Chloride 20 Meq Tablet.er 20 Meq PO DAILY last dose this am next dose tomorrow am Hydrochlorothiazide Tablet (Hydrochlorothiazide) 50 Mg Tablet 25 Mg PO QODAY last dose was this am next dose is on thursday (may 31) Nexium Capsule (Esomeprazole Magnesium) 40 Mg Capsule.dr 40 Mg PO DAILYAC last dose was this - next dose tomorrow am Colestid (Colestipol Hcl) 1 Gm Tablet 1 Gm PO Meds not given this hospital admission. May resume home medications as approved by Physician. Metoprolol Tartrate 50 Mg Tablet 50 Mg PO DAILYWSUP last dose last night with supper next dose tonight with supper Levothyroxine Sodium 50 Mcg Tablet 50 Mcg PO DAILYAC last dose this am next dose tomorrow am Alprazolam 0.25 Mg Tablet 0.25 Mg PO PRN Q6HRS PRN may have when neededlast dose was on thursday am Vitals/I & O Vital Sign - Last 24 Hours 06/15/16 06/15/16 06/15/16 06/15/16 18:01 20:09 20:47 23:03 Temp 100.9 101.8 100.9 101.8 Pulse 84 80 77 78 Resp 24 24 20 20 B/P (MAP) 212/90 (130) 165/91 (115) 164/68 (100) 151/64 (93) Pulse Ox 98 96 94 95 O2 Delivery Room Air Room Air Room Air 06/16/16 06/16/16 06/16/16 06/16/16 00:24 00:36 03:06 07:47 Temp 101.1 98.6 98.0 101.1 98.6 98.0 Pulse 75 84 Resp 16 16 B/P (MAP) 155/62 (93) 140/61 (87) Pulse Ox 94 97 O2 Delivery Room Air Room Air Room Air 06/16/16 10:47 Temp 97.7 97.7 Pulse 79 Resp 16 B/P (MAP) 145/50 (81) Pulse Ox 95 O2 Delivery Room Air Intake and Output 06/15/16 06/15/16 06/16/16 15:00 23:00 07:00 Intake Total 1000 ml 820 ml Output Total 1250 ml Balance 1000 ml -430 ml SUZANNE RAI III DO June 16, 2016 11:11
--- NOTE | 2016-06-16 14:03 | HP ---
ADMIT DATE: 06/16/2016 CHIEF COMPLAINT: Mental status change. HISTORY OF PRESENT ILLNESS: The patient is a pleasant 80-year-old female who presented to the ER with mental status change. She states she just ____ what year it is or where she is at. While in the ER, she is noted to be hyponatremic. I discussed the case with the ER physician. We are going to admit the patient, give her some IV normal saline. PAST MEDICAL HISTORY: Hypertension, arthritis. Other past medical history was reviewed in the computerized H and P. ALLERGIES: None. FAMILY HISTORY: Diabetes. SOCIAL HISTORY: She does not drink, smoke or take drugs. MEDICATIONS: Reviewed. She is on diuretics. REVIEW OF SYSTEMS: GENERAL: No history of weight change, weakness or fevers. SKIN: No bruising, hair changes or rashes. EYES: No blurred, double or loss of vision. NOSE AND THROAT: No history of nosebleeds, hoarseness or sore throat. HEART: No history of palpitations, chest pain or shortness of breath on exertion. LUNGS: Denies cough, hemoptysis, wheezing or shortness of breath. GASTROINTESTINAL: Denies changes in appetite, nausea, vomiting, diarrhea or constipation. GENITOURINARY: No history of frequency, urgency, hesitancy or nocturia. NEUROLOGIC: Complains of weakness and subtle mental status change, although it is improving. PSYCHIATRIC: No history of panic, anxiety or depression. ENDOCRINE: No history of heat or cold intolerance, polyuria or polydipsia. EXTREMITIES: Denies muscle weakness, joint pain, pain on walking or stiffness. PHYSICAL EXAMINATION: VITAL SIGNS: Temperature afebrile, pulse 67, respirations 18, blood pressure 144/90. GENERAL: She is currently alert. Her sodium is up this morning. HEART: Distant S1, S2. LUNGS: Clear. ABDOMEN: Soft, positive bowel sounds. EXTREMITIES: No edema. SKIN: No rashes. PSYCHIATRIC: She is anxious. VASCULAR: Good capillary refill. ENDOCRINE: No thyromegaly. LYMPHATICS: No cervical nodes. HEMATOPOIETIC: No bruising. LABORATORY DATA: Electrolytes: Sodium 124, is now up to 126 after one night of IV normal saline. ASSESSMENT AND PLAN: Resolving hyponatremia. Suspect possibly from her diuretics with a subtle element of psychogenic polydipsia (the patient states she drinks at least 13 glasses of water a day), and educated the patient that she can become toxic even on water. This was ____ to her, restricted food, give her IV normal saline and recheck her sodium level, PT, OT. Resume home medicines except for her diuretics. SUZANNE RAI DO DR: JEN/joesph JOB#: [id number] / [id number]
[2016-06-16 14:39] VITALS: BP 154/64
[2016-06-16] MEDS ORDERED: WARFARIN 5 MG TABLET. PO SCH (16:00)
[2016-06-16] MEDS ORDERED: amLODIPine BESYLATE 5 MG TABLET PO SCH (17:00)
[2016-06-16] MEDS ORDERED: METOPROLOL TART IMMED RELEASE 50 MG TABLET. PO SCH (17:00)
--- NOTE | 2016-06-16 17:04 | PDOC2 ---
CONSULT Date of Consult Date of Consult DATE: 06/16/16 TIME: 16:57 Reason for Consult Reason for Consult: LOW NA AND HIGH BP Referring Physician Referring Physician: AMAN Identification/Chief Complaint Chief Complaint CONFUSED Source Source: Chart review History of Present Illness Reason for Visit: THIS IS AN 80 YR OLD WITH CONFUSION. ADMIT BP IS VERY HIGH AND NA IS LOW. SHE IS CONFUSED. IMAGING STUDIES ARE NEG. XRAY IS NEG Past Medical History Cardiovascular: HTN Family History Family History: No Significant Social History No ALCOHOL: none Drugs: None Lives: [facility] Current Problem List Problem List Problems Medical Problems: (1) Hypertension Status: Acute (2) Hyponatremia Status: Acute (3) Metabolic encephalopathy Status: Acute Current Medications Current Medications Current Medications Lorazepam (Ativan) 1 mg 1X ONCE IV Last administered on 06/15/16 18:33; Start 06/15/16 at 18:45; Stop 06/15/16 at 18:46; Status DC Sodium Chloride 1,000 ml @ 100 mls/hr 1X ONCE IV Last administered on 18:34; Start 06/15/16 at 18:45; Stop 06/16/16 at 04:44; Status DC Ondansetron HCl (Zofran) 4 mg PRN Q8HRS PRN IV NAUSEA/VOMITING; Start 06/15/16 at 19:30; Stop 06/16/16 at 19:29 Sodium Chloride 1,000 ml @ 100 mls/hr Q10H IV Last administered on 06/16/16 08 :48; Start 06/15/16 at 20:00; Stop 06/16/16 at 19:59 Acetaminophen (Tylenol) 650 mg PRN Q4HRS PRN PO FEVER Last administered on 08:23; Start 06/15/16 at 19:30; Stop 06/16/16 at 19:29 Labetalol HCl (Normodyne) 10 mg PRN Q2HR PRN IVP HYPERTENSION, SEE COMMENTS; Start 06/15/16 at 19:30 Potassium Chloride (Klor-Con) 40 meq 1X ONCE PO Last administered on 06/15/16 22:17; Start 06/15/16 at 20:30; Stop 06/15/16 at 20:31; Status DC Alprazolam (Xanax) 0.25 mg PRN Q6HRS PRN PO ANXIETY / AGITATION Last administered on 06/16/16 04:41; Start 06/15/16 at 22:00 Amlodipine Besylate (Norvasc) 5 mg DAILYWSUP PO ; Start 06/16/16 at 17:00 Atorvastatin Calcium (Lipitor) 10 mg HS PO ; Start 06/16/16 at 21:00 Escitalopram Oxalate (Lexapro) 5 mg DAILY PO Last administered on 06/16/16 08: 27; Start 06/16/16 at 09:00 Levothyroxine Sodium (Synthroid) 50 mcg DAILY07 PO Last administered on 06:29; Start 06/16/16 at 07:00 Metoprolol Tartrate (Lopressor) 50 mg DAILYWSUP PO ; Start 06/16/16 at 17:00 Warfarin Sodium (Coumadin) 5 mg DAILY16 PO ; Start 06/16/16 at 16:00 Vitamin D (Vitamin D3) 2,000 unit DAILY PO Last administered on 06/16/16 08:27 ; Start 06/16/16 at 09:00 Pantoprazole Sodium (Protonix) 40 mg DAILYAC PO Last administered on 06/16/16 08:23; Start 06/16/16 at 07:30 Multivitamins (Thera M Plus) 1 tab DAILY PO Last administered on 06/16/16 08:28 ; Start 06/16/16 at 09:00 Potassium Chloride (Klor-Con) 20 meq DAILY PO Last administered on 06/16/16 08: 27; Start 06/16/16 at 09:00 Zolpidem Tartrate (Ambien) 5 mg PRN QHS PRN PO INSOMNIA & MRX1 PRN Last administered on 06/15/16 22:31; Start 06/15/16 at 22:00 Warfarin Sodium (Coumadin Per Physician) 1 each PRN DAILY PRN MC SEE COMMENTS Last administered on 06/16/16 13:52; Start 06/16/16 at 16:00 Active Scripts Active Reported Coumadin (Warfarin Sodium) 5 Mg Tablet 1 Tab PO 1X last dose was at 1300 next dos when prescribed by your house physician Lexapro (Escitalopram Oxalate) 5 Mg Tablet 5 Mg PO DAILY last dose was this am next dose tomorrow am -thursday Multi Vitamin Daily (Multivitamin) 1 Each Tablet 1 Each PO DAILY last dose this am next dose tomorrow am Vitamin D3 (Cholecalciferol (Vitamin D3)) 2,000 Unit Capsule 2,000 Unit PO DAILY Meds not given this hospital admission. May resume home medications as approved by Physician. Zolpidem Tartrate 10 Mg Tablet 10 Mg PO PRN QHS PRN last dose was last night next dose tonight Lipitor (Atorvastatin Calcium) 10 Mg Tablet 10 Mg PO HS last dose last night -thursday next dose is tonight at hs Amlodipine Besylate 5 Mg Tablet 5 Mg PO DAILYWSUP last dose was thursday 1700 next dose today at 1700 Potassium Chloride 20 Meq Tablet.er 20 Meq PO DAILY last dose this am next dose tomorrow am Hydrochlorothiazide Tablet (Hydrochlorothiazide) 50 Mg Tablet 25 Mg PO QODAY last dose was this am next dose is on thursday (may 31) Nexium Capsule (Esomeprazole Magnesium) 40 Mg Capsule.dr 40 Mg PO DAILYAC last dose was this am - next dose tomorrow am Colestid (Colestipol Hcl) 1 Gm Tablet 1 Gm PO Meds not given this hospital admission. May resume home medications as approved by Physician. Metoprolol Tartrate 50 Mg Tablet 50 Mg PO DAILYWSUP last dose last night with supper next dose tonight with supper Levothyroxine Sodium 50 Mcg Tablet 50 Mcg PO DAILYAC last dose this am next dose tomorrow am Alprazolam 0.25 Mg Tablet 0.25 Mg PO PRN Q6HRS PRN may have when neededlast dose was on thursday am Allergies Allergies: Coded Allergies: latex (Verified Allergy, Intermediate, Rash, 05/26/16) ROS Review of System UNABLE TO OBTAIN Physical Exam General: Alert, Oriented X3, Cooperative, No acute distress HEENT: Atraumatic, PERRLA Lungs: Clear to auscultation Heart: Regular rate, Normal S1, Normal S2 Abdomen: Normal bowel sounds Extremities: No cyanosis Neuro: Other (CONFUSED) MUSCULOSKELETAL: No deformity Vitals VITALS Vital Signs Date Time Temp Pulse Resp B/P (MAP) Pulse Ox O2 Delivery O2 Flow Rate FiO2 06/16/16 10:47 97.7 79 16 145/50 (81) 95 Room Air 97.7 Labs Labs Laboratory Tests Test 06/15/16 18:00 06/15/16 18:24 06/16/16 05:05 White Blood Count 9.6 x10^3/uL (4.0-11.0) 8.6 x10^3/uL (4.0-11.0) Red Blood Count 4.35 x10^6/uL (3.50-5.40) 3.86 x10^6/uL (3.50-5.40) Hemoglobin 12.9 g/dL (12.0-15.5) 11.4 g/dL (12.0-15.5) Hematocrit 37.0 % (36.0-47.0) 33.6 % (36.0-47.0) Mean Corpuscular Volume 85 fL (79-100) 87 fL (79-100) Mean Corpuscular Hemoglobin 30 pg (25-35) 29 pg (25-35) Mean Corpuscular Hemoglobin Concent 35 g/dL (31-37) 34 g/dL (31-37) Red Cell Distribution Width 13.6 % (11.5-14.5) 13.8 % (11.5-14.5) Platelet Count 464 x10^3/uL (140-400) 409 x10^3/uL (140-400) Neutrophils (%) (Auto) 67 % (31-73) 59 % (31-73) Lymphocytes (%) (Auto) 22 % (24-48) 26 % (24-48) Monocytes (%) (Auto) 11 % (0-9) 13 % (0-9) Eosinophils (%) (Auto) 0 % (0-3) 0 % (0-3) Basophils (%) (Auto) 1 % (0-3) 1 % (0-3) Neutrophils # (Auto) 6.4 x10^3uL (1.8-7.7) 5.1 x10^3uL (1.8-7.7) Lymphocytes # (Auto) 2.1 x10^3/uL (1.0-4.8) 2.3 x10^3/uL (1.0-4.8) Monocytes # (Auto) 1.0 x10^3/uL (0.0-1.1) 1.1 x10^3/uL (0.0-1.1) Eosinophils # (Auto) 0.0 x10^3/uL (0.0-0.7) 0.0 x10^3/uL (0.0-0.7) Basophils # (Auto) 0.1 x10^3/uL (0.0-0.2) 0.1 x10^3/uL (0.0-0.2) Sodium Level 124 mmol/L (136-145) 126 mmol/L (136-145) Potassium Level 3.1 mmol/L (3.5-5.1) 3.8 mmol/L (3.5-5.1) Chloride Level 87 mmol/L (98-107) 92 mmol/L (98-107) Carbon Dioxide Level 25 mmol/L (21-32) 23 mmol/L (21-32) Anion Gap 12 (6-14) 11 (6-14) Blood Urea Nitrogen 10 mg/dL (7-20) 7 mg/dL (7-20) Creatinine 0.7 mg/dL (0.6-1.0) 0.7 mg/dL (0.6-1.0) Estimated GFR (Cockcroft-Gault) 80.1 80.1 BUN/Creatinine Ratio 14 (6-20) Glucose Level 123 mg/dL (70-99) 104 mg/dL (70-99) Lactic Acid Level 1.9 mmol/L (0.4-2.0) Calcium Level 9.9 mg/dL (8.5-10.1) 9.2 mg/dL (8.5-10.1) Magnesium Level 1.5 mg/dL (1.8-2.4) Total Bilirubin 0.6 mg/dL (0.2-1.0) Aspartate Amino Transf (AST/SGOT) 26 U/L (15-37) Alanine Aminotransferase (ALT/SGPT) 24 U/L (14-59) Alkaline Phosphatase 89 U/L (46-116) Total Protein 7.8 g/dL (6.4-8.2) Albumin 3.7 g/dL (3.4-5.0) Albumin/Globulin Ratio 0.9 (1.0-1.7) Urine Collection Type Unknown Urine Color Yellow Urine Clarity Clear Urine pH 8.0 Urine Specific [place] 1.010 Urine Protein Negative mg/dL (NEG-TRACE) Urine Glucose (UA) Negative mg/dL (NEG) Urine Ketones (Stick) Negative mg/dL (NEG) Urine Blood Negative (NEG) Urine Nitrite Negative (NEG) Urine Bilirubin Negative (NEG) Urine Urobilinogen Dipstick 0.2 mg/dL (0.2 mg/dL) Urine Leukocyte Esterase Negative (NEG) Urine RBC 0 /HPF (0-2) Urine WBC Rare /HPF (0-4) Urine Squamous Epithelial Cells Occ /LPF Urine Bacteria 0 /HPF (0-FEW) Urine Opiates Screen Pos (NEG) Urine Methadone Screen Neg (NEG) Urine Barbiturates Neg (NEG) Urine Phencyclidine Screen Neg (NEG) Urine Amphetamine/Methamphetamine Neg (NEG) Urine Benzodiazepines Screen Neg (NEG) Urine Cocaine Screen Neg (NEG) Urine Cannabinoids Screen Neg (NEG) Urine Ethyl Alcohol Neg (NEG) Prothrombin Time 16.7 SEC (11.7-14.0) Prothromb Time International Ratio 1.4 (0.8-1.1) Laboratory Tests Test 06/15/16 18:00 06/15/16 18:24 06/16/16 05:05 White Blood Count 9.6 x10^3/uL (4.0-11.0) 8.6 x10^3/uL (4.0-11.0) Red Blood Count 4.35 x10^6/uL (3.50-5.40) 3.86 x10^6/uL (3.50-5.40) Hemoglobin 12.9 g/dL (12.0-15.5) 11.4 g/dL (12.0-15.5) Hematocrit 37.0 % (36.0-47.0) 33.6 % (36.0-47.0) Mean Corpuscular Volume 85 fL (79-100) 87 fL (79-100) Mean Corpuscular Hemoglobin 30 pg (25-35) 29 pg (25-35) Mean Corpuscular Hemoglobin Concent 35 g/dL (31-37) 34 g/dL (31-37) Red Cell Distribution Width 13.6 % (11.5-14.5) 13.8 % (11.5-14.5) Platelet Count 464 x10^3/uL (140-400) 409 x10^3/uL (140-400) Neutrophils (%) (Auto) 67 % (31-73) 59 % (31-73) Lymphocytes (%) (Auto) 22 % (24-48) 26 % (24-48) Monocytes (%) (Auto) 11 % (0-9) 13 % (0-9) Eosinophils (%) (Auto) 0 % (0-3) 0 % (0-3) Basophils (%) (Auto) 1 % (0-3) 1 % (0-3) Neutrophils # (Auto) 6.4 x10^3uL (1.8-7.7) 5.1 x10^3uL (1.8-7.7) Lymphocytes # (Auto) 2.1 x10^3/uL (1.0-4.8) 2.3 x10^3/uL (1.0-4.8) Monocytes # (Auto) 1.0 x10^3/uL (0.0-1.1) 1.1 x10^3/uL (0.0-1.1) Eosinophils # (Auto) 0.0 x10^3/uL (0.0-0.7) 0.0 x10^3/uL (0.0-0.7) Basophils # (Auto) 0.1 x10^3/uL (0.0-0.2) 0.1 x10^3/uL (0.0-0.2) Sodium Level 124 mmol/L (136-145) 126 mmol/L (136-145) Potassium Level 3.1 mmol/L (3.5-5.1) 3.8 mmol/L (3.5-5.1) Chloride Level 87 mmol/L (98-107) 92 mmol/L (98-107) Carbon Dioxide Level 25 mmol/L (21-32) 23 mmol/L (21-32) Anion Gap 12 (6-14) 11 (6-14) Blood Urea Nitrogen 10 mg/dL (7-20) 7 mg/dL (7-20) Creatinine 0.7 mg/dL (0.6-1.0) 0.7 mg/dL (0.6-1.0) Estimated GFR (Cockcroft-Gault) 80.1 80.1 BUN/Creatinine Ratio 14 (6-20) Glucose Level 123 mg/dL (70-99) 104 mg/dL (70-99) Lactic Acid Level 1.9 mmol/L (0.4-2.0) Calcium Level 9.9 mg/dL (8.5-10.1) 9.2 mg/dL (8.5-10.1) Magnesium Level 1.5 mg/dL (1.8-2.4) Total Bilirubin 0.6 mg/dL (0.2-1.0) Aspartate Amino Transf (AST/SGOT) 26 U/L (15-37) Alanine Aminotransferase (ALT/SGPT) 24 U/L (14-59) Alkaline Phosphatase 89 U/L (46-116) Total Protein 7.8 g/dL (6.4-8.2) Albumin 3.7 g/dL (3.4-5.0) Albumin/Globulin Ratio 0.9 (1.0-1.7) Urine Collection Type Unknown Urine Color Yellow Urine Clarity Clear Urine pH 8.0 Urine Specific [place] 1.010 Urine Protein Negative mg/dL (NEG-TRACE) Urine Glucose (UA) Negative mg/dL (NEG) Urine Ketones (Stick) Negative mg/dL (NEG) Urine Blood Negative (NEG) Urine Nitrite Negative (NEG) Urine Bilirubin Negative (NEG) Urine Urobilinogen Dipstick 0.2 mg/dL (0.2 mg/dL) Urine Leukocyte Esterase Negative (NEG) Urine RBC 0 /HPF (0-2) Urine WBC Rare /HPF (0-4) Urine Squamous Epithelial Cells Occ /LPF Urine Bacteria 0 /HPF (0-FEW) Urine Opiates Screen Pos (NEG) Urine Methadone Screen Neg (NEG) Urine Barbiturates Neg (NEG) Urine Phencyclidine Screen Neg (NEG) Urine Amphetamine/Methamphetamine Neg (NEG) Urine Benzodiazepines Screen Neg (NEG) Urine Cocaine Screen Neg (NEG) Urine Cannabinoids Screen Neg (NEG) Urine Ethyl Alcohol Neg (NEG) Prothrombin Time 16.7 SEC (11.7-14.0) Prothromb Time International Ratio 1.4 (0.8-1.1) Assessment/Plan Assessment/Plan IMP HYPONATREMIA-PROB HYPOVOLEMIC VARIETY-SERUM OSM OF ABOUT 250 MALIGNANT HTN MET ENCEPHALOPATHY PLAN CHECK TSH URINE LYTES WONT BE HELPFUL DUE TO DIURETICS ISOTONIC SALINE RESUME ANTIHYPERTENSIVES HOLD HIS DIURETIC KEELY BRASHER MD June 16, 2016 17:04
[2016-06-16 19:41] VITALS: BP 140/56
[2016-06-16] MEDS ORDERED: ATORVASTATIN CALCIUM 10 MG TABLET. PO SCH (21:00)
[2016-06-16] MEDS: ZOLPIDEM 5 MG TABLET. PO PRN (21:51)
[2016-06-16 23:00] VITALS: BP 137/71
[2016-06-16] MEDS ORDERED: ACETAMINOPHEN 325 MG TABLET. PO PRN ×2 (23:45→23:50)
[2016-06-17 03:00] VITALS: BP 140/68
[2016-06-17] MEDS: LEVOTHYROXINE 50 MCG TABLET PO SCH (06:09)
[2016-06-17 06:11] LABS: BASO # 0.1 x10^3/uL (0.0-0.2); BASO % 1 % (0-3); EOS % 1 % (0-3); HEMATOCRIT 36.5 % (36.0-47.0); HEMOGLOBIN 12.2 g/dL (12.0-15.5); LYMPH # 2.1 x10^3/uL (1.0-4.8); LYMPH % 24 % (24-48); MEAN CORPUSCULAR HEMOGLOBIN 29 pg (25-35); MEAN CORPUSCULAR HGB CONC 33 g/dL (31-37); MEAN CORPUSCULAR VOLUME 87 fL (79-100); MONO % 13 % (0-9); NEUT % 61 % (31-73); PLATELET COUNT 429 x10^3/uL (140-400); RED BLOOD COUNT 4.19 x10^6/uL (3.50-5.40); RED CELL DISTRIBUTION WIDTH 13.8 % (11.5-14.5); WHITE BLOOD COUNT 8.9 x10^3/uL (4.0-11.0)
[2016-06-17 06:25] LABS: CALCIUM 9.6 mg/dL (8.5-10.1); CREATININE 0.6 mg/dL (0.6-1.0); GFR 95.7; POTASSIUM 3.8 mmol/L (3.5-5.1)
[2016-06-17 07:15] VITALS: BP 153/62
[2016-06-17] MEDS: ESCITALOPRAM 5 MG TABLET. PO SCH (08:22)
[2016-06-17] MEDS: PANTOPRAZOLE 40 MG TABLET.DR. PO SCH (08:22)
[2016-06-17] MEDS: CHOLECALCIFEROL (VITAMIN D3) 1,000 UNIT TABLET PO SCH (08:22)
[2016-06-17] MEDS: MULTIVITAMIN with MINERAL TABLET. PO SCH (08:22)
[2016-06-17] MEDS: POTASSIUM CHLORIDE 20 MEQ TABLET.ER. PO SCH (08:23)
[2016-06-17 11:15] VITALS: BP 149/64
--- NOTE | 2016-06-17 11:39 | PDOC ---
PROGRESS NOTES Chief Complaint Chief Complaint 1. Hyponatremia 2. Altered mental status 3. Metabolic encephalopathy 4. HTN 5. Recent R knee replacement History of Present Illness History of Present Illness Patient is stable and in no distress this morning. Patient still questioning what are causes of hyponatremia. Since patient drinks 13 glasses of water a day, patient advised to not consume as much water per day. Patient wants to be D/C Vitals Vitals Vital Signs Date Time Temp Pulse Resp B/P (MAP) Pulse Ox O2 Delivery O2 Flow Rate FiO2 06/17/16 11:15 97.5 74 18 149/64 (92) 96 Room Air 97.5 Physical Exam General: Alert, Oriented X3, Cooperative, No acute distress Heart: Regular rate, Normal S1, Normal S2 Lungs: Clear Abdomen: Normal bowel sounds, No tenderness, No hepatosplenomegaly Extremities: No cyanosis, No edema Skin: No rashes, No breakdown Labs LABS Laboratory Tests Test 06/17/16 05:15 White Blood Count 8.9 x10^3/uL (4.0-11.0) Red Blood Count 4.19 x10^6/uL (3.50-5.40) Hemoglobin 12.2 g/dL (12.0-15.5) Hematocrit 36.5 % (36.0-47.0) Mean Corpuscular Volume 87 fL (79-100) Mean Corpuscular Hemoglobin 29 pg (25-35) Mean Corpuscular Hemoglobin Concent 33 g/dL (31-37) Red Cell Distribution Width 13.8 % (11.5-14.5) Platelet Count 429 x10^3/uL (140-400) Neutrophils (%) (Auto) 61 % (31-73) Lymphocytes (%) (Auto) 24 % (24-48) Monocytes (%) (Auto) 13 % (0-9) Eosinophils (%) (Auto) 1 % (0-3) Basophils (%) (Auto) 1 % (0-3) Neutrophils # (Auto) 5.4 x10^3uL (1.8-7.7) Lymphocytes # (Auto) 2.1 x10^3/uL (1.0-4.8) Monocytes # (Auto) 1.2 x10^3/uL (0.0-1.1) Eosinophils # (Auto) 0.1 x10^3/uL (0.0-0.7) Basophils # (Auto) 0.1 x10^3/uL (0.0-0.2) Sodium Level 130 mmol/L (136-145) Potassium Level 3.8 mmol/L (3.5-5.1) Chloride Level 95 mmol/L (98-107) Carbon Dioxide Level 24 mmol/L (21-32) Anion Gap 11 (6-14) Blood Urea Nitrogen 7 mg/dL (7-20) Creatinine 0.6 mg/dL (0.6-1.0) Estimated GFR (Cockcroft-Gault) 95.7 Glucose Level 96 mg/dL (70-99) Calcium Level 9.6 mg/dL (8.5-10.1) Review of Systems Review of Systems No diarrhea/constipation No vomiting No JURADO/blurry vision No SOB No chest pain Assessment and Plan Assessmemt and Plan Problems Medical Problems: (1) Hypertension Status: Acute (2) Hyponatremia Status: Acute (3) Metabolic encephalopathy Status: Acute 4. Recent R knee replacement Plan: -Continue current medications and adjust accordingly as needed -Continue to consult specialists as needed -Continue PT/OT -Educate patient to drink less water and add more salt to diet -D/C patient today Problems: Comment Review of Relevant I have reviewed the following items oskar (where applicable) has been applied. Labs Laboratory Tests Test 06/15/16 18:00 06/15/16 18:24 06/16/16 05:05 06/17/16 05:15 White Blood Count 9.6 x10^3/uL (4.0-11.0) 8.6 x10^3/uL (4.0-11.0) 8.9 x10^3/uL (4.0-11.0) Red Blood Count 4.35 x10^6/uL (3.50-5.40) 3.86 x10^6/uL (3.50-5.40) 4.19 x10^6/uL (3.50-5.40) Hemoglobin 12.9 g/dL (12.0-15.5) 11.4 g/dL (12.0-15.5) 12.2 g/dL (12.0-15.5) Hematocrit 37.0 % (36.0-47.0) 33.6 % (36.0-47.0) 36.5 % (36.0-47.0) Mean Corpuscular Volume 85 fL (79-100) 87 fL (79-100) 87 fL (79-100) Mean Corpuscular Hemoglobin 30 pg (25-35) 29 pg (25-35) 29 pg (25-35) Mean Corpuscular Hemoglobin Concent 35 g/dL (31-37) 34 g/dL (31-37) 33 g/dL (31-37) Red Cell Distribution Width 13.6 % (11.5-14.5) 13.8 % (11.5-14.5) 13.8 % (11.5-14.5) Platelet Count 464 x10^3/uL (140-400) 409 x10^3/uL (140-400) 429 x10^3/uL (140-400) Neutrophils (%) (Auto) 67 % (31-73) 59 % (31-73) 61 % (31-73) Lymphocytes (%) (Auto) 22 % (24-48) 26 % (24-48) 24 % (24-48) Monocytes (%) (Auto) 11 % (0-9) 13 % (0-9) 13 % (0-9) Eosinophils (%) (Auto) 0 % (0-3) 0 % (0-3) 1 % (0-3) Basophils (%) (Auto) 1 % (0-3) 1 % (0-3) 1 % (0-3) Neutrophils # (Auto) 6.4 x10^3uL (1.8-7.7) 5.1 x10^3uL (1.8-7.7) 5.4 x10^3uL (1.8-7.7) Lymphocytes # (Auto) 2.1 x10^3/uL (1.0-4.8) 2.3 x10^3/uL (1.0-4.8) 2.1 x10^3/uL (1.0-4.8) Monocytes # (Auto) 1.0 x10^3/uL (0.0-1.1) 1.1 x10^3/uL (0.0-1.1) 1.2 x10^3/uL (0.0-1.1) Eosinophils # (Auto) 0.0 x10^3/uL (0.0-0.7) 0.0 x10^3/uL (0.0-0.7) 0.1 x10^3/uL (0.0-0.7) Basophils # (Auto) 0.1 x10^3/uL (0.0-0.2) 0.1 x10^3/uL (0.0-0.2) 0.1 x10^3/uL (0.0-0.2) Sodium Level 124 mmol/L (136-145) 126 mmol/L (136-145) 130 mmol/L (136-145) Potassium Level 3.1 mmol/L (3.5-5.1) 3.8 mmol/L (3.5-5.1) 3.8 mmol/L (3.5-5.1) Chloride Level 87 mmol/L (98-107) 92 mmol/L (98-107) 95 mmol/L (98-107) Carbon Dioxide Level 25 mmol/L (21-32) 23 mmol/L (21-32) 24 mmol/L (21-32) Anion Gap 12 (6-14) 11 (6-14) 11 (6-14) Blood Urea Nitrogen 10 mg/dL (7-20) 7 mg/dL (7-20) 7 mg/dL (7-20) Creatinine 0.7 mg/dL (0.6-1.0) 0.7 mg/dL (0.6-1.0) 0.6 mg/dL (0.6-1.0) Estimated GFR (Cockcroft-Gault) 80.1 80.1 95.7 BUN/Creatinine Ratio 14 (6-20) Glucose Level 123 mg/dL (70-99) 104 mg/dL (70-99) 96 mg/dL (70-99) Lactic Acid Level 1.9 mmol/L (0.4-2.0) Calcium Level 9.9 mg/dL (8.5-10.1) 9.2 mg/dL (8.5-10.1) 9.6 mg/dL (8.5-10.1) Magnesium Level 1.5 mg/dL (1.8-2.4) Total Bilirubin 0.6 mg/dL (0.2-1.0) Aspartate Amino Transf (AST/SGOT) 26 U/L (15-37) Alanine Aminotransferase (ALT/SGPT) 24 U/L (14-59) Alkaline Phosphatase 89 U/L (46-116) Total Protein 7.8 g/dL (6.4-8.2) Albumin 3.7 g/dL (3.4-5.0) Albumin/Globulin Ratio 0.9 (1.0-1.7) Urine Collection Type Unknown Urine Color Yellow Urine Clarity Clear Urine pH 8.0 Urine Specific [place] 1.010 Urine Protein Negative mg/dL (NEG-TRACE) Urine Glucose (UA) Negative mg/dL (NEG) Urine Ketones (Stick) Negative mg/dL (NEG) Urine Blood Negative (NEG) Urine Nitrite Negative (NEG) Urine Bilirubin Negative (NEG) Urine Urobilinogen Dipstick 0.2 mg/dL (0.2 mg/dL) Urine Leukocyte Esterase Negative (NEG) Urine RBC 0 /HPF (0-2) Urine WBC Rare /HPF (0-4) Urine Squamous Epithelial Cells Occ /LPF Urine Bacteria 0 /HPF (0-FEW) Urine Opiates Screen Pos (NEG) Urine Methadone Screen Neg (NEG) Urine Barbiturates Neg (NEG) Urine Phencyclidine Screen Neg (NEG) Urine Amphetamine/Methamphetamine Neg (NEG) Urine Benzodiazepines Screen Neg (NEG) Urine Cocaine Screen Neg (NEG) Urine Cannabinoids Screen Neg (NEG) Urine Ethyl Alcohol Neg (NEG) Prothrombin Time 16.7 SEC (11.7-14.0) Prothromb Time International Ratio 1.4 (0.8-1.1) Laboratory Tests Test 06/17/16 05:15 White Blood Count 8.9 x10^3/uL (4.0-11.0) Red Blood Count 4.19 x10^6/uL (3.50-5.40) Hemoglobin 12.2 g/dL (12.0-15.5) Hematocrit 36.5 % (36.0-47.0) Mean Corpuscular Volume 87 fL (79-100) Mean Corpuscular Hemoglobin 29 pg (25-35) Mean Corpuscular Hemoglobin Concent 33 g/dL (31-37) Red Cell Distribution Width 13.8 % (11.5-14.5) Platelet Count 429 x10^3/uL (140-400) Neutrophils (%) (Auto) 61 % (31-73) Lymphocytes (%) (Auto) 24 % (24-48) Monocytes (%) (Auto) 13 % (0-9) Eosinophils (%) (Auto) 1 % (0-3) Basophils (%) (Auto) 1 % (0-3) Neutrophils # (Auto) 5.4 x10^3uL (1.8-7.7) Lymphocytes # (Auto) 2.1 x10^3/uL (1.0-4.8) Monocytes # (Auto) 1.2 x10^3/uL (0.0-1.1) Eosinophils # (Auto) 0.1 x10^3/uL (0.0-0.7) Basophils # (Auto) 0.1 x10^3/uL (0.0-0.2) Sodium Level 130 mmol/L (136-145) Potassium Level 3.8 mmol/L (3.5-5.1) Chloride Level 95 mmol/L (98-107) Carbon Dioxide Level 24 mmol/L (21-32) Anion Gap 11 (6-14) Blood Urea Nitrogen 7 mg/dL (7-20) Creatinine 0.6 mg/dL (0.6-1.0) Estimated GFR (Cockcroft-Gault) 95.7 Glucose Level 96 mg/dL (70-99) Calcium Level 9.6 mg/dL (8.5-10.1) Microbiology 06/15/16 Blood Culture - Preliminary, Resulted NO GROWTH AFTER 1 DAY Medications Current Medications Lorazepam (Ativan) 1 mg 1X ONCE IV Last administered on 06/15/16 18:33; Start 06/15/16 at 18:45; Stop 06/15/16 at 18:46; Status DC Sodium Chloride 1,000 ml @ 100 mls/hr 1X ONCE IV Last administered on 18:34; Start 06/15/16 at 18:45; Stop 06/16/16 at 04:44; Status DC Ondansetron HCl (Zofran) 4 mg PRN Q8HRS PRN IV NAUSEA/VOMITING; Start 06/15/16 at 19:30; Stop 06/16/16 at 19:29; Status DC Sodium Chloride 1,000 ml @ 100 mls/hr Q10H IV Last administered on 06/16/16 08 :48; Start 06/15/16 at 20:00; Stop 06/16/16 at 19:59; Status DC Acetaminophen (Tylenol) 650 mg PRN Q4HRS PRN PO FEVER Last administered on 08:23; Start 06/15/16 at 19:30; Stop 06/16/16 at 19:29; Status DC Labetalol HCl (Normodyne) 10 mg PRN Q2HR PRN IVP HYPERTENSION, SEE COMMENTS; Start 06/15/16 at 19:30 Potassium Chloride (Klor-Con) 40 meq 1X ONCE PO Last administered on 06/15/16 22:17; Start 06/15/16 at 20:30; Stop 06/15/16 at 20:31; Status DC Alprazolam (Xanax) 0.25 mg PRN Q6HRS PRN PO ANXIETY / AGITATION Last administered on 06/16/16 21:51; Start 06/15/16 at 22:00 Amlodipine Besylate (Norvasc) 5 mg DAILYWSUP PO Last administered on 06/16/16 17:02; Start 06/16/16 at 17:00 Atorvastatin Calcium (Lipitor) 10 mg HS PO Last administered on 06/16/16 21:51 ; Start 06/16/16 at 21:00 Escitalopram Oxalate (Lexapro) 5 mg DAILY PO Last administered on 06/17/16 08: 22; Start 06/16/16 at 09:00 Levothyroxine Sodium (Synthroid) 50 mcg DAILY07 PO Last administered on 06:09; Start 06/16/16 at 07:00 Metoprolol Tartrate (Lopressor) 50 mg DAILYWSUP PO Last administered on 17:01; Start 06/16/16 at 17:00 Warfarin Sodium (Coumadin) 5 mg DAILY16 PO Last administered on 06/16/16 16:59 ; Start 06/16/16 at 16:00 Vitamin D (Vitamin D3) 2,000 unit DAILY PO Last administered on 06/17/16 08:22 ; Start 06/16/16 at 09:00 Pantoprazole Sodium (Protonix) 40 mg DAILYAC PO Last administered on 06/17/16 08:22; Start 06/16/16 at 07:30 Multivitamins (Thera M Plus) 1 tab DAILY PO Last administered on 06/17/16 08:22 ; Start 06/16/16 at 09:00 Potassium Chloride (Klor-Con) 20 meq DAILY PO Last administered on 06/17/16 08: 23; Start 06/16/16 at 09:00 Zolpidem Tartrate (Ambien) 5 mg PRN QHS PRN PO INSOMNIA & MRX1 PRN Last administered on 06/16/16 21:51; Start 06/15/16 at 22:00 Warfarin Sodium (Coumadin Per Physician) 1 each PRN DAILY PRN MC SEE COMMENTS Last administered on 06/17/16 11:10; Start 06/16/16 at 16:00 Acetaminophen (Tylenol) 650 mg PRN Q4HRS PRN PO PAIN Last administered on 23:52; Start 06/16/16 at 23:45; Stop 06/17/16 at 00:02; Status DC Acetaminophen (Tylenol) 650 mg PRN Q4HRS PRN PO PAIN Last administered on 10:21; Start 06/16/16 at 23:50 Active Scripts Active Reported Coumadin (Warfarin Sodium) 5 Mg Tablet 1 Tab PO 1X last dose was at 1300 next dos when prescribed by your house physician Lexapro (Escitalopram Oxalate) 5 Mg Tablet 5 Mg PO DAILY last dose was this am next dose tomorrow am -thursday Multi Vitamin Daily (Multivitamin) 1 Each Tablet 1 Each PO DAILY last dose this am next dose tomorrow am Vitamin D3 (Cholecalciferol (Vitamin D3)) 2,000 Unit Capsule 2,000 Unit PO DAILY Meds not given this hospital admission. May resume home medications as approved by Physician. Zolpidem Tartrate 10 Mg Tablet 10 Mg PO PRN QHS PRN last dose was last night next dose tonight Lipitor (Atorvastatin Calcium) 10 Mg Tablet 10 Mg PO HS last dose last night -thursday next dose is tonight at hs Amlodipine Besylate 5 Mg Tablet 5 Mg PO DAILYWSUP last dose was thursday 1700 next dose today at 1700 Potassium Chloride 20 Meq Tablet.er 20 Meq PO DAILY last dose this am next dose tomorrow am Hydrochlorothiazide Tablet (Hydrochlorothiazide) 50 Mg Tablet 25 Mg PO QODAY last dose was this am next dose is on thursday (may 31) Nexium Capsule (Esomeprazole Magnesium) 40 Mg Capsule.dr 40 Mg PO DAILYAC last dose was this am - next dose tomorrow am Colestid (Colestipol Hcl) 1 Gm Tablet 1 Gm PO Meds not given this hospital admission. May resume home medications as approved by Physician. Metoprolol Tartrate 50 Mg Tablet 50 Mg PO DAILYWSUP last dose last night with supper next dose tonight with supper Levothyroxine Sodium 50 Mcg Tablet 50 Mcg PO DAILYAC last dose this am next dose tomorrow am Alprazolam 0.25 Mg Tablet 0.25 Mg PO PRN Q6HRS PRN may have when neededlast dose was on thursday am Vitals/I & O Vital Sign - Last 24 Hours 06/16/16 06/16/16 06/16/16 06/16/16 14:39 17:01 17:02 19:41 Temp 98.1 98.1 98.1 98.1 Pulse 74 79 79 64 Resp 16 18 B/P (MAP) 154/64 (94) 145/50 145/50 140/56 (84) Pulse Ox 96 97 O2 Delivery Room Air Room Air 06/16/16 06/17/16 06/17/16 06/17/16 23:00 03:00 07:15 08:00 Temp 98.1 98.0 98.1 98.1 98.0 98.1 Pulse 73 75 77 Resp 18 18 16 B/P (MAP) 137/71 (93) 140/68 (92) 153/62 (92) Pulse Ox 97 96 95 O2 Delivery Room Air Room Air Room Air Room Air 06/17/16 11:15 Temp 97.5 97.5 Pulse 74 Resp 18 B/P (MAP) 149/64 (92) Pulse Ox 96 O2 Delivery Room Air Intake and Output 06/16/16 06/16/16 06/17/16 15:00 23:00 07:00 Intake Total 700 ml 200 ml Output Total 200 ml 700 ml Balance -200 ml 0 ml 200 ml SUZANNE RAI K III DO June 17, 2016 11:39
--- NOTE | 2016-06-17 12:16 | PDOC ---
Renal-Progress Notes Subjective Notes Notes NONE History of Present Illness Hx of present illness NO CHANGE Vitals Vitals Vital Signs Date Time Temp Pulse Resp B/P (MAP) Pulse Ox O2 Delivery O2 Flow Rate FiO2 06/17/16 11:15 97.5 74 18 149/64 (92) 96 Room Air 97.5 Weight Weight [ ] I.O. Intake and Output Intake and Output 06/17/16 06:59 Intake Total 900 ml Output Total 900 ml Balance 0 ml Intake Oral 900 ml Output Urine Total 900 ml # Voids 6 Labs Labs Laboratory Tests Test 06/17/16 05:15 White Blood Count 8.9 x10^3/uL (4.0-11.0) Red Blood Count 4.19 x10^6/uL (3.50-5.40) Hemoglobin 12.2 g/dL (12.0-15.5) Hematocrit 36.5 % (36.0-47.0) Mean Corpuscular Volume 87 fL (79-100) Mean Corpuscular Hemoglobin 29 pg (25-35) Mean Corpuscular Hemoglobin Concent 33 g/dL (31-37) Red Cell Distribution Width 13.8 % (11.5-14.5) Platelet Count 429 x10^3/uL (140-400) Neutrophils (%) (Auto) 61 % (31-73) Lymphocytes (%) (Auto) 24 % (24-48) Monocytes (%) (Auto) 13 % (0-9) Eosinophils (%) (Auto) 1 % (0-3) Basophils (%) (Auto) 1 % (0-3) Neutrophils # (Auto) 5.4 x10^3uL (1.8-7.7) Lymphocytes # (Auto) 2.1 x10^3/uL (1.0-4.8) Monocytes # (Auto) 1.2 x10^3/uL (0.0-1.1) Eosinophils # (Auto) 0.1 x10^3/uL (0.0-0.7) Basophils # (Auto) 0.1 x10^3/uL (0.0-0.2) Sodium Level 130 mmol/L (136-145) Potassium Level 3.8 mmol/L (3.5-5.1) Chloride Level 95 mmol/L (98-107) Carbon Dioxide Level 24 mmol/L (21-32) Anion Gap 11 (6-14) Blood Urea Nitrogen 7 mg/dL (7-20) Creatinine 0.6 mg/dL (0.6-1.0) Estimated GFR (Cockcroft-Gault) 95.7 Glucose Level 96 mg/dL (70-99) Calcium Level 9.6 mg/dL (8.5-10.1) Micro Micro Microbiology 06/15/16 Blood Culture - Preliminary, Resulted NO GROWTH AFTER 1 DAY Review of Systems Constitutional: yes: no symptom reported Eyes: Yes: no symptom reported Pulmonary: Yes no symptom reported Cardiovascular: Yes no symptom reported Musculoskeletal: Yes: no symptom reported Skin: Yes no symptom reported Psychiatric/Neurological: Yes: no symptom reported Physical Exam General Appearance: no apparent distress Respiratory: bilateral CTA Heart: S1S2, RRR Genitourinary: bladder flat Extremities: pulses present Neurology: alert Assessment Assessment IMP HYPONATREMIA-NEARLY RESOLVED HTN-IMPROVED PLAN CONT ISOTONIC SALINE LABS IN AM CONT TO HOLD HCTZ KEELY BRASHER MD June 17, 2016 12:16
--- NOTE | 2016-06-17 12:54 | PDOC ---
ORTHO PROGRESS NOTES Subjective Marsha tells me she is feeling much better. Regarding her knee, she feels like things are actually going okay but had concerns over the redness Vitals Vital Signs Date Time Temp Pulse Resp B/P (MAP) Pulse Ox O2 Delivery O2 Flow Rate FiO2 06/17/16 11:15 97.5 74 18 149/64 (92) 96 Room Air 97.5 Labs Laboratory Tests Test 06/15/16 18:00 06/15/16 18:24 06/16/16 05:05 06/17/16 05:15 White Blood Count 9.6 x10^3/uL (4.0-11.0) 8.6 x10^3/uL (4.0-11.0) 8.9 x10^3/uL (4.0-11.0) Red Blood Count 4.35 x10^6/uL (3.50-5.40) 3.86 x10^6/uL (3.50-5.40) 4.19 x10^6/uL (3.50-5.40) Hemoglobin 12.9 g/dL (12.0-15.5) 11.4 g/dL (12.0-15.5) 12.2 g/dL (12.0-15.5) Hematocrit 37.0 % (36.0-47.0) 33.6 % (36.0-47.0) 36.5 % (36.0-47.0) Mean Corpuscular Volume 85 fL (79-100) 87 fL (79-100) 87 fL (79-100) Mean Corpuscular Hemoglobin 30 pg (25-35) 29 pg (25-35) 29 pg (25-35) Mean Corpuscular Hemoglobin Concent 35 g/dL (31-37) 34 g/dL (31-37) 33 g/dL (31-37) Red Cell Distribution Width 13.6 % (11.5-14.5) 13.8 % (11.5-14.5) 13.8 % (11.5-14.5) Platelet Count 464 x10^3/uL (140-400) 409 x10^3/uL (140-400) 429 x10^3/uL (140-400) Neutrophils (%) (Auto) 67 % (31-73) 59 % (31-73) 61 % (31-73) Lymphocytes (%) (Auto) 22 % (24-48) 26 % (24-48) 24 % (24-48) Monocytes (%) (Auto) 11 % (0-9) 13 % (0-9) 13 % (0-9) Eosinophils (%) (Auto) 0 % (0-3) 0 % (0-3) 1 % (0-3) Basophils (%) (Auto) 1 % (0-3) 1 % (0-3) 1 % (0-3) Neutrophils # (Auto) 6.4 x10^3uL (1.8-7.7) 5.1 x10^3uL (1.8-7.7) 5.4 x10^3uL (1.8-7.7) Lymphocytes # (Auto) 2.1 x10^3/uL (1.0-4.8) 2.3 x10^3/uL (1.0-4.8) 2.1 x10^3/uL (1.0-4.8) Monocytes # (Auto) 1.0 x10^3/uL (0.0-1.1) 1.1 x10^3/uL (0.0-1.1) 1.2 x10^3/uL (0.0-1.1) Eosinophils # (Auto) 0.0 x10^3/uL (0.0-0.7) 0.0 x10^3/uL (0.0-0.7) 0.1 x10^3/uL (0.0-0.7) Basophils # (Auto) 0.1 x10^3/uL (0.0-0.2) 0.1 x10^3/uL (0.0-0.2) 0.1 x10^3/uL (0.0-0.2) Sodium Level 124 mmol/L (136-145) 126 mmol/L (136-145) 130 mmol/L (136-145) Potassium Level 3.1 mmol/L (3.5-5.1) 3.8 mmol/L (3.5-5.1) 3.8 mmol/L (3.5-5.1) Chloride Level 87 mmol/L (98-107) 92 mmol/L (98-107) 95 mmol/L (98-107) Carbon Dioxide Level 25 mmol/L (21-32) 23 mmol/L (21-32) 24 mmol/L (21-32) Anion Gap 12 (6-14) 11 (6-14) 11 (6-14) Blood Urea Nitrogen 10 mg/dL (7-20) 7 mg/dL (7-20) 7 mg/dL (7-20) Creatinine 0.7 mg/dL (0.6-1.0) 0.7 mg/dL (0.6-1.0) 0.6 mg/dL (0.6-1.0) Estimated GFR (Cockcroft-Gault) 80.1 80.1 95.7 BUN/Creatinine Ratio 14 (6-20) Glucose Level 123 mg/dL (70-99) 104 mg/dL (70-99) 96 mg/dL (70-99) Lactic Acid Level 1.9 mmol/L (0.4-2.0) Calcium Level 9.9 mg/dL (8.5-10.1) 9.2 mg/dL (8.5-10.1) 9.6 mg/dL (8.5-10.1) Magnesium Level 1.5 mg/dL (1.8-2.4) Total Bilirubin 0.6 mg/dL (0.2-1.0) Aspartate Amino Transf (AST/SGOT) 26 U/L (15-37) Alanine Aminotransferase (ALT/SGPT) 24 U/L (14-59) Alkaline Phosphatase 89 U/L (46-116) Total Protein 7.8 g/dL (6.4-8.2) Albumin 3.7 g/dL (3.4-5.0) Albumin/Globulin Ratio 0.9 (1.0-1.7) Urine Collection Type Unknown Urine Color Yellow Urine Clarity Clear Urine pH 8.0 Urine Specific [place] 1.010 Urine Protein Negative mg/dL (NEG-TRACE) Urine Glucose (UA) Negative mg/dL (NEG) Urine Ketones (Stick) Negative mg/dL (NEG) Urine Blood Negative (NEG) Urine Nitrite Negative (NEG) Urine Bilirubin Negative (NEG) Urine Urobilinogen Dipstick 0.2 mg/dL (0.2 mg/dL) Urine Leukocyte Esterase Negative (NEG) Urine RBC 0 /HPF (0-2) Urine WBC Rare /HPF (0-4) Urine Squamous Epithelial Cells Occ /LPF Urine Bacteria 0 /HPF (0-FEW) Urine Opiates Screen Pos (NEG) Urine Methadone Screen Neg (NEG) Urine Barbiturates Neg (NEG) Urine Phencyclidine Screen Neg (NEG) Urine Amphetamine/Methamphetamine Neg (NEG) Urine Benzodiazepines Screen Neg (NEG) Urine Cocaine Screen Neg (NEG) Urine Cannabinoids Screen Neg (NEG) Urine Ethyl Alcohol Neg (NEG) Prothrombin Time 16.7 SEC (11.7-14.0) Prothromb Time International Ratio 1.4 (0.8-1.1) Laboratory Tests Test 06/17/16 05:15 White Blood Count 8.9 x10^3/uL (4.0-11.0) Red Blood Count 4.19 x10^6/uL (3.50-5.40) Hemoglobin 12.2 g/dL (12.0-15.5) Hematocrit 36.5 % (36.0-47.0) Mean Corpuscular Volume 87 fL (79-100) Mean Corpuscular Hemoglobin 29 pg (25-35) Mean Corpuscular Hemoglobin Concent 33 g/dL (31-37) Red Cell Distribution Width 13.8 % (11.5-14.5) Platelet Count 429 x10^3/uL (140-400) Neutrophils (%) (Auto) 61 % (31-73) Lymphocytes (%) (Auto) 24 % (24-48) Monocytes (%) (Auto) 13 % (0-9) Eosinophils (%) (Auto) 1 % (0-3) Basophils (%) (Auto) 1 % (0-3) Neutrophils # (Auto) 5.4 x10^3uL (1.8-7.7) Lymphocytes # (Auto) 2.1 x10^3/uL (1.0-4.8) Monocytes # (Auto) 1.2 x10^3/uL (0.0-1.1) Eosinophils # (Auto) 0.1 x10^3/uL (0.0-0.7) Basophils # (Auto) 0.1 x10^3/uL (0.0-0.2) Sodium Level 130 mmol/L (136-145) Potassium Level 3.8 mmol/L (3.5-5.1) Chloride Level 95 mmol/L (98-107) Carbon Dioxide Level 24 mmol/L (21-32) Anion Gap 11 (6-14) Blood Urea Nitrogen 7 mg/dL (7-20) Creatinine 0.6 mg/dL (0.6-1.0) Estimated GFR (Cockcroft-Gault) 95.7 Glucose Level 96 mg/dL (70-99) Calcium Level 9.6 mg/dL (8.5-10.1) Notes She is awake and alert, pleasant and conversant. Examination of her right lower shoulder reveals faint erythema over her incision. Really no effusion. Range of motion is 3 to 100. Assessment and Plan We will get her set up for outpatient physical therapy. From my standpoint she can be discharged. I think the redness is normal in that she is recovering well from her recent knee replacement. She should follow up with myself at her next scheduled follow-up. ALIRIO DE LA CRUZ II, MD June 17, 2016 12:54
== END 2016-06-17 12:15 | disposition home or self-care (01) | DRG 640 ==
LOC: ER 19:24 → 6 SOUTH 19:42
PROVIDERS: ADMIT Internal Medicine; ATTEND Internal Medicine
DX: E87.1 Hypo-osmolality and hyponatremia (principal); G93.41 Metabolic encephalopathy; I10 Essential (primary) hypertension; E86.1 Hypovolemia; Z96.651 Presence of right artificial knee joint; M19.90 Unspecified osteoarthritis, unspecified site; Z83.3 Family history of diabetes mellitus; Z91.040 Latex allergy status
CPT/HCPCS: 36415; 51702; 71010; 80048; 80053; 81001; 83605; 83735; 85027; 85610; 87040; 93005; 96360; 96361; G0481; J2060; J7030; 99285-25

== ENCOUNTER → 2016-06-27 | Outpatient (CLI) | payer MEDICARE ==
[2016-06-17 11:15] VITALS: BP 149/64
--- NOTE | 2016-06-27 16:34 | RAD ---
Examination: Ultrasound kidneys History: History of urinary retention. Comparison: None available Findings : The right kidney measures 9.6 x 3.7 x 5.5 cm . The left kidney measures 10.5 x 4.9 x 5.1 cm. The urinary bladder is mildly distended with a prevoid volume measuring 140 mL and post void volume measuring 46 ml. There is mild increased echogenicity identified in the right and left kidneys. Impression: 1. Mild increased echogenicity identified in the right and left kidneys probably due to medical renal disease. Otherwise unremarkable exam. 2. Post void urinary bladder residual 46 mL.
== END | disposition home or self-care (01) ==
LOC: US 15:08
PROVIDERS: ATTEND Internal Medicine
DX: N28.9 Disorder of kidney and ureter, unspecified (principal); R33.9 Retention of urine, unspecified
CPT/HCPCS: 76770

== ENCOUNTER → 2017-09-15 | Outpatient (CLI) | payer MEDICARE | END | disposition home or self-care (01) | LOC: KCIC MRI 09:41 | DX: S46.911A Strain of unspecified muscle, fascia and tendon at shoulder and upper arm level, right arm, initial encounter (principal); M94.211 Chondromalacia, right shoulder; I10 Essential (primary) hypertension; X58.XXXA Exposure to other specified factors, initial encounter; Y93.89 Activity, other specified; Y92.89 Other specified places as the place of occurrence of the external cause; Y99.8 Other external cause status | CPT/HCPCS: 73221 ==